=== PATIENT | female | born 1965 | race Caucasian/White ===

== ENCOUNTER 2017-10-24 03:28 | Emergency (ER) | payer MEDICAID, SELFPAY ==
[2017-10-24 03:30] VITALS: BP 124/89; PULSE 90; RESP 16; TEMP 36.8; O2SAT 97; BMI 20.8
--- NOTE | 2017-10-24 03:48 | CT_ITS ---
STUDY: CT ABDOMEN AND PELVIS WITHOUT CONTRAST REASON FOR EXAM: Female, 52 years old. LOW ABD PAIN AND SWELLING. Pt. had back surgery 07/2017 for scoliosis RADIATION DOSAGE (If Supplied By Facility): CTDIvol = ( 6.15 ) mGy, DLP = ( 276.33 ) mGycm TECHNIQUE: Transaxial images were obtained from the dome of the diaphragm to the symphysis pubis without oral contrast, and without intravenous contrast. Sagittal and coronal images were reconstructed. Individualized dose optimization techniques were used for this CT. COMPARISON: None. FINDINGS: The visualized lung bases are unremarkable. The visualized portions of the heart are within normal limits. Normal liver. Normal gallbladder and extrahepatic biliary system. Normal spleen. Normal pancreas. Normal bilateral adrenal glands. Normal right kidney. Normal left kidney. Normal visualized stomach. Normal small intestine. Normal colon. The appendix is visualized and appears normal. Normal abdominal aorta. Normal inferior vena cava. Normal retroperitoneum. Normal urinary bladder. Normal abdominal wall. Posterior fusion hardware is seen in the lower thoracic spine and in the lumbar spine extending to S2 level with fusion of the bilateral sacroiliac joints. There is an old compression fracture of L1. Healing fractures are noted in the right and left superior and inferior pubic rami and in the sacrum. There is fluid collection posterior to the laminectomy site at the L1, L2, L3, L4 measuring approximately measuring approximately 4.2 x 3 x 8.4 cm most likely represent a seroma. CT/Abdomen/Pelvis without Cont IMPRESSION: There is fluid collection posterior to the laminectomy site at the L1, L2, L3, L4 measuring approximately measuring approximately 4.2 x 3 x 8.4 cm most likely represent a seroma. Electronically Signed: Ruby Monson MD at 5:15 EDT Tel , Service support ,
--- NOTE | 2017-10-24 03:51 | ED.DCSUM_ITS ---
- ER Visit Summary Date of Service: 10/24/17 Chief Complaint: [] Abdominal pain History of Present Illness: The patient is a 52 F [] complaining of diffuse mild abdominal pain since July 26, 2017, the date of her most recent back surgery for scoliosis/kyphosis. She reports nausea, denies vomiting. Denies diarrhea or constipation. Feels slight abdominal distention. Feels something just is not right. Patient has an unusual affect. Physical Examination: [] Afebrile, vital signs stable. 52-year-old female no acute distress. Cardiovascular exam is regular rate and rhythm. Lungs are clear to auscultation. Abdomen is soft with mild diffuse tenderness. No guarding or rebound noted. Nondistended. Remainder of exam is unremarkable. Test Results: [] Labs: CBC, BMP, LFTs, lipase all within normal limits. CT flank: No abdominal pathology. Seroma/fluid collection around the spine near the area of recent orthopedic spine surgery. No signs of abscess. Emergency Department Course and Treatment: [] Patient received intravenous fluids, Phenergan for symptom relief. On serial exam patient had mild improvement of symptoms. Patient had several questions about her discomfort of unknown origin. She was encouraged to follow-up with her [employer] TECHNICIAN as she reports increasing pressure in her pelvic organs. No other complaints at this time. She is amenable to discharge at this time and close follow-up. Treatment Plan: [] Follow-up with PCP. Disposition: [] Discharge, stable. Impression: [] Abdominal pain, unknown etiology Seroma This note was generated with [employer] dictation software. It may contain incorrect words, spelling, and punctuation that were not noted in review of the chart prior to signing ED Disposition - Plan for ED Patient: Chief Complaint: Abd Pain Referrals: Amanda Cyr MD [Primary Care Provider] -
[2017-10-24 04:34] LABS: Absolute Lymphocyte Count 1.57 X10^3/ul (0.83-4.51); Absolute Neutrophil Count 3.7 X10^3/uL (2.0-7.7); Basophil# 0.02 X10^3/uL; Basophil% 0.3 % (0-1); Eosinophil# 0.06 X10^3/uL; Hematocrit 34.2 % (37-47); Hemoglobin 10.8 g/dl (12.0-15.0); Lymphocyte # 1.57 X10^3/ul (4.0); Mean Corp Hgb Conc 31.6 g/gl (32-36); Mean Corpuscular Hgb 26.3 pg (27.0-32.0); Mean Corpuscular Volume 83.2 fL (81-99); Mean Platelet Vol. 11.3 fl (6.2-12.0); Monocyte# 0.47 X10^3/uL; Monocyte% 8.1 % (0-10); Neutrophil # 3.67 X10^3/uL (2.7-7.7); Neutrophil % 63.3 % (47-70); POSITIVE COUNT NO; POSITIVE DIFFERENTIAL NO; POSITIVE MORPHOLOGY NO; Platelet Count 278 K/mm3 (150-450); RBC Distribution Width CV 15.3 % (11.6-14.6); RBC Distribution Width SD 46.6 fl (35.1-43.9); Red Blood Count 4.11 M/mm3 (4.2-5.4); White Blood Count 5.8 K/mm3 (4.4-11.0)
[2017-10-24 04:44] LABS: ALB/GLOB Ratio 1.1 RATIO (0.9-2.4); AST(SGOT) 17 U/L (15-37); Alanine Aminotransfer ALT/SGPT 21 U/L (13-56); Albumin, Serum 3.7 g/dL (3.2-5.0); Alkaline Phosphatase 136 U/L (45-117); Anion Gap 6 (5-15); BUN 17 mg/dL (7-18); BUN/Creat Ratio 35.8 RATIO (10-20); Chloride 109 mmol/L (98-107); Creatinine, Serum 0.48 mg/dL (0.55-1.02); EST Glomerular Filtration Rate 146 mL/min (>60); Est Glom Filt Rate - Afr Amer 176 mL/min (>60); Estimated Creatinine Clearance 112.12 ml/min; Globulin 3.4 g/dL (2.2-4.2); Glucose 97 mg/dL (74-106); Lipase 201 U/L (73-393); Protein, Total 7.1 g/dL (6.4-8.2); Sodium Level 141 mmol/L (136-145)
--- NOTE | 2017-10-24 05:28 | ED.DEP ---
ED Disposition - Plan for ED Patient: Disposition: Home or Assisted Living Chief Complaint: Abd Pain Instructions: ED Abdominal Pain Unkn Cause, ED Seroma Post Op Referrals: Amanda Cyr MD [Primary Care Provider] - Additional Instructions: Follow-up with your lock up worker for evaluation of potential uterine prolapse or other cervical pathologies.
[2017-10-24 05:42] VITALS: BP 121/90; PULSE 79; RESP 15; O2SAT 96
== END 2017-10-24 05:48 | disposition home or self-care (01) ==
PROVIDERS: Emergency Provider Emergency Medicine; Family Provider Internal Medicine; PCP Internal Medicine
DX: R10.84 Generalized abdominal pain (principal); M96.842 Postprocedural seroma of a musculoskeletal structure following a musculoskeletal system procedure; Z72.0 Tobacco use; Z79.891 Long term (current) use of opiate analgesic; Z79.899 Other long term (current) drug therapy
CPT/HCPCS: 74176; 80053; 83690; 85025; 99284; A4216

== ENCOUNTER → 2017-11-26 15:00 | Outpatient (CLI) | payer MEDICAID, SELFPAY ==
--- NOTE | 2017-11-26 15:02 | RAD_ITS ---
STUDY: X-RAY - ABDOMEN/PELVIS REASON FOR EXAM: Female, 52 years old. Constipation TECHNIQUE: Single AP view of the abdomen / pelvis. COMPARISON: None. FINDINGS: Normal visualized lung bases. There is an unremarkable bowel gas pattern. There is no demonstrated free abdominal air. The visualized liver, spleen and kidneys are grossly normal in size and morphology. Normal soft tissue structures. Extensive thoracic, lumbar, and sacral fusions. Multiple laminectomies and disc space fusions. Remote deformities of the bilateral superior and inferior pubic rami. RAD/Abdomen Single View IMPRESSION: Normal bowel gas pattern. Electronically Signed: Jaden Sandra MD at 23:39 EDT Tel , Service support ,
== END ==
PROVIDERS: Family Provider Internal Medicine; PCP Internal Medicine; Visit Provider Surgery
DX: K59.09 Other constipation (principal)
CPT/HCPCS: 74018

== ENCOUNTER 2018-03-11 12:30 | Outpatient (RCR) | payer MEDICAID, SELFPAY ==
--- NOTE | 2017-11-23 12:18 | HP.PTEVAL_ITS ---
Patient's Visit Information TANA GOLDBERG is a 52 year old F referred to Physical Therapy by KI PEDERSEN with a diagnosis of Degenerative scoliosis. Date of Evaluation: 11/23/17 Physical Therapist: Ki Fuentes PT, - Visit Plan Frequency: 2x /Week Duration: 4 Weeks Plan: Light intensity core strengthening program, B LE flexibility program, balance program. Nustep for endurance. Modalities prn. S/P thoracolumbar fusion 07/26/17. High psychosocial component with her pain/recovery. - Subjective Subjective: Pt is a 52 y/o female referred for degenerative scoliosis. She had spinal fusion last November 2016 and then a second surgery this past Feburary [address] Armendariz. States that her fusion was redone then was was extended up to the T5 region. She was hospitalized for 6 days. She had a brace and back precautions immediately after her surgery. She has had a difficult post-op recovery as she states that she lost about 10 lbs of weight and having difficulty with bowel movements. She has a Dr. that is montioring these issues. She reports increased LBP but denies radicular symptoms that she had in the past. Patient current condition posture surgery affects QOL and impaires ADL'S/ housewotk taks. SOCAIL: SINGLE. VOCATION: unemployed - Pain Thoracic/lumbar spine Pain Intensity (Out of 10): 9 Pain Intensity Range: 10 - Objective OBSERVATION: ambulates with forward flexed trunk flexed. Incisions well healed , upto ~T4-5 level. GAIT: Ambulates with FWW, forward flexed posturereciprocal pattern. ROM: Lumbar flexion 50%, extension 0%, B LF 50%. Cervical flexion 75% , extension 50%, R rotation 100%, L rotation 75%. NEURO: Dermatomes intact, myotomes intact, unable to elicit DTRs for L3/S1. STRENGTH: B LE gross MMT 4-/ 5 quads/hams ,hip flexion 3+/5 ,ankle 4-/5 - Goals Goal 1:: Pt will report ability to ambulate for >250 feet with LRAD to improve independence with functional ambulation. Goal Time Frame: 4-6 Weeks Goal 2:: Pt will improve CANDIS by 5 points to exhibit true change in function and QOL. Goal Time Frame: 4-6 Weeks Goal 3:: Pt will demonstrate B LE strength of 4/5 to improve tolerance with functional transfers. Goal Time Frame: 4-6 Weeks Goal 4:: Pt will be independent with HEP to sustain gains made in therapy. Goal Time Frame: 4-6 Weeks Goal 5:: Patient be able to perform ADL'S and ligh housework tasks with min/mod limitaions Goal 6:: Pt will demonstrate narrow IASURA with eyes closed for 20 seconds to improve static balance during standing tasks. Goal Time Frame: 4-6 Weeks - Rehabilitation Potential Physical Therapy Diagnosis: Pt is a 52 y/o female referred for degenerative scoliosis. She had a 2nd fusion performed on 07/26/17, pt describes this surgery was an extension to T5. She had a previous fusion performed 12/15/16. She reports post operative complications that are being followed by another doctor. Since this surgery, she demonstrates improved standing posture and no radicular symptoms. She has activity limitations that include decreased ambulation distance, decreased standing tolerance, and decreased independence with ADLs. This limits her participation with community ambulation. She has multiple orthopedic and psychosocial factors that are barriors to care. Pt will benefit from skilled PT to address the mentioned impairments to maximize function. Rehabilitation Potential: Fair - Anticipated Interventions Patient/Client Instruction: Educate patient on: Condition, Plan of Care For the Purpose of:: To decrease pain, To increase ROM, To improve muscle performance and motor function, To improve ability to perform ADL's, To increase tolerance to activity/condition/position, To improve performance and independence with ADL's, To improve ability of physical actions for home/ community/work/leisure, To improve gait and locomotor functions, To improve health of tissue, To decrease soft tissue restriction, To increase flexibility/ ROM, To improve endurance, To improve self management Therapeutic Exercise to Include: Strength training, Endurance training, Balance training, Body mechanics, Postural training, Flexibilty training, Gait and locomotor training, Active ROM, Dynamic Lumbar Stabilization For the Purpose of:: To decrease pain, To increase ROM, To improve muscle performance and motor function, To increase tolerance to activity/condition/ position, To improve performance and independence with ADL's, To improve ability of physical actions for home/community/work/leisure, To improve gait and locomotor functions, To improve health of tissue, To decrease soft tissue restriction, To increase flexibility/ROM, To improve self management TENS: Yes IF ES: Yes Other electric stimulation: Yes Cryotherapy (ice pack, ice massage): Yes Thermo therapy (hot pack): Yes For the Purpose of:: To decrease pain, To increase ROM, To improve muscle performance and motor function, To improve ability to perform ADL's, To increase tolerance to activity/condition/position, To improve ability of physical actions for home/community/work/leisure, To improve gait and locomotor functions, To improve health of tissue, To decrease soft tissue restriction, To increase flexibility/ROM, To improve endurance, To improve balance, To improve safety with gait Thank you for the opportunity to evaluate your patient. For Medicare and Medicare HMO plans, please review the plan of care and approve it. It will need to be FAXED BACK to us at [phone] for Medicare purposes. Please let me know if there are questions or concerns regarding this plan of care. Physician Signature: Date:
--- NOTE | 2018-04-05 11:40 | HP.PT.NRP ---
HP - Discharge Summary (1) - Patient Information TANA GOLDBERG was seen in my office for initial evaluation on 11/23/17. The following Plan of Care was established for this patient: Initial Frequency: 2x /Week Initial Duration: 4 Weeks - Anticipated Interventions Patient/Client Instruction: Educate patient on: Condition, Plan of Care For the Purpose of:: To decrease pain, To increase ROM, To improve muscle performance and motor function, To improve ability to perform ADL's, To increase tolerance to activity/condition/position, To improve performance and independence with ADL's, To improve ability of physical actions for home/community/work/leisure, To improve gait and locomotor functions, To improve health of tissue, To decrease soft tissue restriction, To increase flexibility/ROM, To improve endurance, To improve self management Therapeutic Exercise to Include: Strength training, Endurance training, Balance training, Body mechanics, Postural training, Flexibilty training, Gait and locomotor training, Active ROM, Dynamic Lumbar Stabilization For the Purpose of:: To decrease pain, To increase ROM, To improve muscle performance and motor function, To increase tolerance to activity/condition/position, To improve performance and independence with ADL's, To improve ability of physical actions for home/community/work/leisure, To improve gait and locomotor functions, To improve health of tissue, To decrease soft tissue restriction, To increase flexibility/ROM, To improve self management TENS: Yes IF ES: Yes Other electric stimulation: Yes Cryotherapy (ice pack, ice massage): Yes Thermo therapy (hot pack): Yes For the Purpose of:: To decrease pain, To increase ROM, To improve muscle performance and motor function, To improve ability to perform ADL's, To increase tolerance to activity/condition/position, To improve ability of physical actions for home/community/work/leisure, To improve gait and locomotor functions, To improve health of tissue, To decrease soft tissue restriction, To increase flexibility/ROM, To improve endurance, To improve balance, To improve safety with gait This patient was last seen in our office 03/11/18. Pertinent comments regarding their Physical therapy will appear below: Patient has been in physical for revision lumbar -thoracic fusion with cyndy placemnet. Patient has been inconsisted with attending PT treatment due to personal issues. Conts to use FWW .Patient followed up with MD. Patient called in and cancelled appoints due MD told her she had failed hardware.Thus patient is d/c. At this point I will be discontinuing this patient from physical therapy. I would be happy to see this patient again in the future if found appropriate by the physician. Thank you! Suman Fuentes, PT,
== END 2018-03-11 19:00 | disposition home or self-care (01) ==
LOC: PT 12:30
PROVIDERS: Family Provider Internal Medicine; PCP Internal Medicine
DX: M41.9 Scoliosis, unspecified (principal)
CPT/HCPCS: 97110; 97163; 97530

== ENCOUNTER 2018-03-25 20:35 | Emergency (ER) | payer MEDICAID, SELFPAY ==
[2018-03-25 20:36] VITALS: BP 137/85; PULSE 71; RESP 20; TEMP 37; O2SAT 99; BMI 20.5
--- NOTE | 2018-03-25 21:17 | RAD_ITS ---
STUDY: X-RAY - LUMBAR SPINE REASON FOR EXAM: Female, 52 years old. Back pain. Back surgery for scoliosis earlier this year. TECHNIQUE: 2 view(s) of the lumbar spine were obtained. COMPARISON: Lumbar spine, April 01, 2017. FINDINGS: Again seen is evidence of posterior fusion of L2-S1 and posterior fusion of the thoracic spine. The metallic rods and pedicle screws are intact and unchanged in appearance from the prior study. Stable disc spacers at L3-4 L4-5 and L5-S1. There is no substantial scoliosis. There is a normal alignment of the vertebrae. There is generalized osteopenia which limits evaluation. There is mild loss of disc height. The soft tissue structures are unremarkable. RAD/Lumbar Spine 2 or 3 Views IMPRESSION: Stable surgical hardware. Further evaluation of the lumbar spine is limited due to marked osteopenia Electronically Signed: Archie Cr DO at 21:38 EDT Tel [phone], Service support ,
--- NOTE | 2018-03-25 21:17 | RAD_ITS ---
STUDY: X-RAY - PELVIS AND BILATERAL HIPS REASON FOR EXAM: Female, 52 years old. History of back surgery for scoliosis. Pain. TECHNIQUE: Radiological exam, hip, bilateral, with pelvis when performed; minimum of 5 views COMPARISON: Pelvis and left hip, February 07, 2017. FINDINGS: There is a non-specific bowel gas pattern. Normal visualized soft tissue structures. Stable surgical hardware of the lumbar spine and pelvis. Normal bilateral iliac wings, sacroiliac joints and visualized sacrum. Normal bilateral superior and inferior pubic rami. Normal pubic symphysis. Normal bilateral ischial tuberosities. Normal visualized right femoral head. Normal right acetabulum. Normal right hip joint. Normal visualized left femoral head. Normal left acetabulum. Normal left hip joint. RAD/Hips B/L min 2 views w/ Pelvis IMPRESSION: Stable findings. There is no acute fracture or dislocation. Electronically Signed: Archie Cr DO at 21:39 EDT Tel [phone], Service support ,
--- NOTE | 2018-03-25 22:29 | ED.VISSUMM ---
- ER Visit Summary Date of Service: 03/25/18 Chief Complaint: Back pain History of Present Illness: The patient is a 52 F with a history of chronic back pain. Patient has had multiple surgeries and has rods in her back. Patient states that she was told a stress fracture was found on x-rays of her lower back on March 18. She states her hips are now more painful and she wanted to have these checked. She is currently taking tramadol, Lyrica, along with something for muscle spasm. There is been no new injury to her back. Physical Examination: Vital signs are unremarkable. Patient sitting upright in bed no acute distress. Heart is regular rate and rhythm. Lung sounds are clear. Abdomen is soft and nontender. No palpable masses. Back examination reveals midline surgical scar over the thoracic and lumbar spine. There is very mild to minimal tenderness on exam. Lower extreme examination was no focal tenderness with palpation of the anterior or lateral hips. She has good range of motion. Strong distal pulses are noted. Test Results: LS spine x-rays were obtained that reveals stable surgical hardware. There is marketed osteopenia. Pelvis x-ray along with bilateral hips reveal stable findings. No acute fracture. Emergency Department Course and Treatment: Test results are discussed with the patient. She states she would like to get an opinion of another spine surgeon as she would like to have her hardware removed or switched. She will be referred to Dr. Adrian's office as there is a spine surgeon that comes up from [facility] to see patients. She will continue her current medication regimen. Treatment Plan: [] Disposition: Discharge Impression: Chronic back pain This note was generated with [employer] dictation software. It may contain incorrect words, spelling, and punctuation that were not noted in review of the chart prior to signing ED Disposition - Plan for ED Patient: Chief Complaint: Back Referrals: Amanda Cyr MD [Primary Care Provider] -
--- NOTE | 2018-03-25 22:31 | ED.DEP ---
ED Disposition - Plan for ED Patient: Disposition: Home or Assisted Living Chief Complaint: Back Instructions: ED Neck Back Pain General Referrals: Amanda Cyr MD [Primary Care Provider] - [place] Adrian DO [STAFF PHYSICIAN] - As Needed Additional Instructions: You can follow-up with a spine surgeon who sees patient's at Dr Adrian's office.
[2018-03-25 23:06] VITALS: BP 110/66; PULSE 81; RESP 16; O2SAT 95
== END 2018-03-25 23:07 | disposition home or self-care (01) ==
PROVIDERS: Emergency Provider Emergency Medicine; Family Provider Internal Medicine; PCP Internal Medicine
DX: M54.5 Low back pain (principal); G89.29 Other chronic pain; M79.7 Fibromyalgia; Z79.891 Long term (current) use of opiate analgesic; Z79.899 Other long term (current) drug therapy; Z72.0 Tobacco use
CPT/HCPCS: 72100; 73521; 99282

== ENCOUNTER 2018-05-02 18:30 | Emergency (ER) | payer MEDICAID, SELFPAY ==
[2018-05-02 18:32] VITALS: BP 124/90; PULSE 105; RESP 16; TEMP 36.6; O2SAT 97; BMI 24.2
--- NOTE | 2018-05-02 18:39 | ED.RN ---
PT CONTINUES TO INSIST THAT SHE DOES NOT WANT TO BE SEEN. SHE WAS OFFERED A SCREEN EXAM BUT CONTINUES TO DECLINE. AWARE.
--- NOTE | 2018-05-02 18:42 | ED.RN ---
SPOKE WITH PT AGAIN, PT INSISTS THAT SHE DOES NOT WANT TO BE SEEN. PT REFUSING SCREEN EXAM BY .
== END 2018-05-02 18:43 | disposition left against medical advice (07) ==
LOC: ED 18:47
PROVIDERS: Emergency Provider Emergency Medicine; Family Provider Internal Medicine; PCP Internal Medicine
DX: R56.9 Unspecified convulsions (principal)
CPT/HCPCS: 99282

== ENCOUNTER 2018-10-29 17:39 | Emergency (ER) | payer MEDICAID, SELFPAY ==
[2018-10-29 17:41] VITALS: BP 134/76; PULSE 107; RESP 18; TEMP 37.3; O2SAT 96; BMI 23.6
--- NOTE | 2018-10-29 17:57 | RAD_ITS ---
STUDY: X-RAY - LEFT SHOULDER REASON FOR EXAM: Female, 53 years old. Fell in the shower this morning, left shoulder pain TECHNIQUE: 2 view(s) of the shoulder. COMPARISON: None. FINDINGS: Normal glenohumeral articulation. Normal acromioclavicular joint. Normal acromion. Normal humeral head and visualized proximal humerus. The soft tissue structures are unremarkable. Thoracic fusion hardware noted. RAD/Shoulder min 2 Views IMPRESSION: No fracture or malalignment. Electronically Signed: Iain Herrera MD at 18:33 EDT , Service support ,
--- NOTE | 2018-10-29 17:57 | RAD_ITS ---
STUDY: X-RAY - UNILATERAL RIBS ( LEFT ) WITH CHEST REASON FOR EXAM: Female, 53 years old. The shower this morning, chest pain TECHNIQUE - RIBS: 4 view(s) of the ribs. TECHNIQUE - CHEST: PA COMPARISON: None. FINDINGS - RIBS: Diffuse osteopenia limits exam. No obvious displaced acute rib fractures seen. Unhealed but subacute appearing fracture of the posterior left seventh rib demonstrates callus. FINDINGS - CHEST: The lungs are clear and expanded. There is no demonstrated pleural abnormality. Normal size heart. Normal mediastinum and charla. Normal visualized pulmonary arteries. Normal visualized aortic arch and descending thoracic aorta. Extensive fusion hardware of the thoracolumbar spine. There is no demonstrated abnormality of the visualized soft tissue structures of the upper abdomen. RAD/Ribs Uni Min 3V w/PA Chest IMPRESSION: RIBS: No displaced acute rib fracture. Partially healed (subacute or chronic) posterior left seventh rib fracture. CHEST: Nonacute x-ray examination of the chest. Electronically Signed: Iain Herrera MD at 18:35 EDT , Service support ,
--- NOTE | 2018-10-29 18:03 | ED.VISSUMM ---
- ER Visit Summary Date of Service: 10/29/18 Chief Complaint: Fall History of Present Illness: The patient is a 53 F presenting after fall. Patient slipped in her bathtub and fell onto her left side. She did not hit her head or lose consciousness. She states she tried to catch herself so she would not hit her back because she has had multiple back problems in the past. She hit her left shoulder. She denies other injuries. Physical Examination: Vitals are stable. Patient is afebrile. Alert no acute distress. HEENT exam is unremarkable. Neck is nontender Lungs are clear and equal bilaterally. Tenderness along left clavicle. Left anterior rib tenderness, no crepitus Heart is regular rate and rhythm. Abdomen is soft nontender nondistended. Extremities mild left shoulder tenderness with active full range of motion. Skin is warm and dry. No focal neurologic deficit. Remainder of exam is unremarkable. Emergency Department Course and Treatment: Left Clavicle x-ray shows no acute process. Left shoulder x-ray shows no acute process. Left rib series shows RIBS: No displaced acute rib fracture. Partially healed (subacute or chronic) posterior left seventh rib fracture. CHEST: Nonacute x-ray examination of the chest. Patient drove herself to the ED. She is given a [employer] home pack. Advised to follow-up with primary care physician. Advised return to ED for worsening complaints. Disposition: Discharge home Impression: Left chest wall contusion status post mechanical fall This note was generated with [employer] dictation software. It may contain incorrect words, spelling, and punctuation that were not noted in review of the chart prior to signing ED Disposition - Plan for ED Patient: Instructions: ED Contusion Rib Referrals: Amanda Cyr MD [Primary Care Provider] -
--- NOTE | 2018-10-29 18:10 | RAD_ITS ---
STUDY: X-RAY - LEFT CLAVICLE REASON FOR EXAM: Female, 53 years old. Following the shower this morning, clavicle pain TECHNIQUE: 2 view(s) of the clavicle. COMPARISON: None. FINDINGS: Normal clavicle. Normal acromioclavicular articulation. Normal visualized sternoclavicular articulation. Fusion hardware of the thoracic spine noted. RAD/Clavicle IMPRESSION: No clavicle fracture seen. Electronically Signed: Iain Herrera MD at 18:32 EDT , Service support ,
--- NOTE | 2018-10-29 21:43 | ED.DEP ---
ED Disposition - Plan for ED Patient: Instructions: ED Contusion Rib Referrals: Amanda Cyr MD [Primary Care Provider] -
[2018-10-29 21:55] VITALS: RESP 18
[2018-10-29] MEDS: HYDROcodone Bitartrate/Apap 5/325 Tablet PO (21:55)
== END 2018-10-29 21:56 | disposition home or self-care (01) ==
PROVIDERS: Emergency Provider Emergency Medicine; Family Provider Internal Medicine; PCP Internal Medicine
DX: S20.212A Contusion of left front wall of thorax, initial encounter (principal); Z72.0 Tobacco use; W18.2XXA Fall in (into) shower or empty bathtub, initial encounter; Y93.E1 Activity, personal bathing and showering; Y92.002 Bathroom of unspecified non-institutional (private) residence as the place of occurrence of the external cause; Y99.8 Other external cause status
CPT/HCPCS: 71101; 73000; 73030; 99282

== ENCOUNTER 2018-12-11 12:08 | Emergency (ER) | payer MEDICAID, SELFPAY ==
[2018-12-11 12:09] VITALS: BP 123/80; PULSE 89; RESP 18; TEMP 36.6; O2SAT 98; BMI 24.4
--- NOTE | 2018-12-11 12:24 | ED.VIS.GEN ---
History of Present Illness Informant: Patient Onset: Yesterday Context: Sudden Onset Timing: Continuous Quality: aching Location: back Current Severity: Severe Maximum Severity: Severe Worsened by: movement Relieved by: nothing Associated Symptoms: denies Narrative: 53-year-old woman with a history of chronic back pain who is on tramadol presents because she thinks that she may have lost her bottle of tramadol. She gets this prescription from Dr. Cyr. She last took a dose at 6 PM yesterday. She fill the new prescription for 1 month supply 4 days ago. She does not remember what happened to the bottle and could not find it today. She states that she has not left her home since she took her dose yesterday. She lives alone and no one has been able to come help her look for the bottle medications. No one is been in her out of the house since she last saw the bottle. She is here because she is out of her tramadol and is having back pain but has not had any new injury to her back or trauma and her pain is consistent with the chronic back pain that she deals with on a daily basis. Prior similar symptoms: Yes Recent Illness/Hospitalization: No <Angel Oneal - Last Filed: 12/11/18 12:24> <Ovidio Patricia - Last Filed: 12/11/18 14:13> Chief Complaint: Back Past Medical History Prior records reviewed: Yes Past Medical History: - - Chronic back pain Surgical History: - - Multiple back surgeries Smoking Status: Current every day smoker <Angel Oneal - Last Filed: 12/11/18 12:24> <Ovidio Patricia - Last Filed: 12/11/18 14:13> - Allergies and Home Meds Allergies/Adverse Reactions: Allergies buspirone [From BuSpar] Allergy (Verified 12/11/18 12:12) Hives escitalopram [From Lexapro] Adverse Reaction (Verified 12/11/18 12:12) Rash gabapentin Adverse Reaction (Verified 12/11/18 12:12) Nausea/Vom/Diarrhea ANTIDEPRESSANT-UNKNOWN NAME Allergy (Uncoded 12/11/18 12:12) Other PT UNABLE TO TOLERATE Primary Care Physician: Amanda Cyr MD [Primary Care Provider] - Review of Systems All systems negative except as indicated Musculoskeletal: Reports: Back pain <Angel Oneal - Last Filed: 12/11/18 12:24> Physical Exam Vital Signs/Narrative: Vital Signs Temp Pulse Resp BP Pulse Ox 12/11/18 12:09 97.8 F 89 18 123/80 H 98 Inital Vital Signs reviewed: No General: Well nourished, Well developed Head: Normocephalic, Atraumatic Eyes: Perrl, EOMI ENT: Moist mucous membranes Neck: Supple, Nontender Cardiovascular: Regular rate, Regular rhythm Respiratory: No distress, CTA bilaterally, Chest nontender Abdomen: Soft, Nontender, Nondistended, Normal bowel sounds, No masses Back: Normal Inspection, - - Patient has some mild paraspinal pain on palpation thoracic and lumbar areas that is consistent with her chronic back pain. She moves all 4 extremities normally. She was able to ambulate with her walker which she uses at baseline. Strength testing of all 4 extremities is 5 out of 5, pulses and sensation of all 4 extremities normal. Negative for: Spinal tenderness Extremities: Nontender, No edema Skin: Normal color, No rash Neurological: Alert, Oriented x3, Normal Strength, Normal Sensation, Normal Gait <Angel Oneal - Last Filed: 12/11/18 12:24> Vital Signs/Narrative: Vital Signs Temp Pulse Resp BP Pulse Ox 12/11/18 13:03 16 123/80 H 12/11/18 12:09 97.8 F 89 18 123/80 H 98 <Ovidio Patricia - Last Filed: 12/11/18 14:13> Diagnostic/Tx/Re-eval - Medical Decision Making We performed a OARRS port on the patient. She just filled 1 month supply of tramadol 4 days ago by her doctor. Discussed with her at this time due to [facility] rules and regulations we would be unable to prescribe her more Ultram. She will have to follow-up with her doctor that prescribed medication for this. She does not have any acute injury that would require imaging or work-up in the emergency department. Discharged home and advised to call her doctor's office tomorrow, which is Wednesday. <Angel Oneal - Last Filed: 12/11/18 12:24> - Medical Decision Making this is Dr. Patricia dictating agree with history and physical exam as above seen with the PA Indicates she lost her tramadol her physical exam is unremarkable head neck chest abdomen baseline nothing acute explain the above the patient we cannot refill her tramadol if she has lost that her needs refill prescription of her primary care physicians due to [facility] and other regulator rules <Ovidio Patricia - Last Filed: 12/11/18 14:13> ED Disposition <Angel Oneal - Last Filed: 12/11/18 12:24> <Ovidio Patricia - Last Filed: 12/11/18 14:13> - Plan for ED Patient: Disposition: Home or Assisted Living Diagnosis: Chronic back pain Instructions: BACK PAIN (Acute or Chronic) Referrals: Amanda Cyr MD [Primary Care Provider] -
[2018-12-11 13:03] VITALS: BP 123/80; RESP 16
== END 2018-12-11 13:04 | disposition home or self-care (01) ==
LOC: ED 13:00
PROVIDERS: Emergency Provider Physician Assistant Medical; Family Provider Internal Medicine; PCP Internal Medicine
DX: M54.5 Low back pain (principal); M54.6 Pain in thoracic spine; G89.29 Other chronic pain; F17.200 Nicotine dependence, unspecified, uncomplicated
CPT/HCPCS: 99282

== ENCOUNTER 2018-12-12 18:23 | Emergency (ER) | payer MEDICAID, SELFPAY ==
[2018-12-11 12:09] VITALS: BMI 24.4
[2018-12-12 18:23] VITALS: BP 105/74; PULSE 72; RESP 16; TEMP 36.6; O2SAT 98; BMI 21.7
[2018-12-12 18:40] VITALS: BP 120/83; PULSE 108; RESP 13; O2SAT 98
--- NOTE | 2018-12-12 19:08 | ED.DCSUM_ITS ---
History of Present Illness Chief Complaint: Back Informant: Patient Onset: - - Chronic Current Severity: Mild Maximum Severity: Moderate Narrative: Patient is a history of chronic back pain. She is written for tramadol and [place] on a regular basis from her primary care physician, Dr. Cyr. Patient states she last took her tramadol yesterday. Today she cannot find her pill bottle. She thinks she may have thrown it out. She states she called the office today but they would not write her more medication. She is here asking for a refill on her tramadol. There is been no new injury in the last several days. Past Medical History - Allergies and Home Meds Allergies/Adverse Reactions: Allergies buspirone [From BuSpar] Allergy (Verified 12/12/18 18:25) Hives escitalopram [From Lexapro] Adverse Reaction (Verified 12/12/18 18:25) Rash gabapentin Adverse Reaction (Verified 12/12/18 18:25) Nausea/Vom/Diarrhea ANTIDEPRESSANT-UNKNOWN NAME Allergy (Uncoded 12/12/18 18:25) Other PT UNABLE TO TOLERATE Primary Care Physician: Amanda Cyr MD [Primary Care Provider] - Prior records reviewed: Yes Past Medical History: - Surgical History: - - Multiple back surgeries Smoking Status: Former smoker Review of Systems General: Denies: Chills, Fever Cardiovascular: Denies: Chest pain Respiratory: Denies: Dyspnea, Cough Gastrointestinal: Denies: Abdominal pain, Nausea, Vomiting Musculoskeletal: Reports: Back pain Neurological: Denies: Headache Physical Exam Vital Signs/Narrative: Vital Signs Temp Pulse Resp BP Pulse Ox 12/12/18 18:40 108 H 13 120/83 H 98 12/12/18 18:23 97.8 F 72 16 105/74 98 Inital Vital Signs reviewed: Yes General: Well nourished ENT: Moist mucous membranes Cardiovascular: Regular rate, Regular rhythm Respiratory: No distress, CTA bilaterally Abdomen: Soft, Nontender, Normal bowel sounds Back: - - Mild tenderness in the lower lumbar region. Extremities: Nontender, - - 1+ bilateral patellar reflexes. Strong distal pulses. Neurological: Alert, Oriented x3 Diagnostic/Tx/Re-eval - Medical Decision Making I did review oars report. Patient has been getting regular prescriptions of tramadol and [place] from Dr. Cyr. The last tramadol prescription was written on December 07 for an 11-day course. I advised the patient I will give her a dose of tramadol here but I would not re-fill her prescription. She reportedly had called the office today but was told that her doctor would not prescribe her medication for her either. I spoke with Dr. Wilson, on-call for Dr. Cyr and let them know the patient was in the emergency room attempting to get a prescription. ED Disposition - Plan for ED Patient: Diagnosis: Chronic back pain Instructions: BACK AND NECK PAIN, General Referrals: Amanda Cyr MD [Primary Care Provider] - As soon as possible
[2018-12-12] MEDS: traMADol 50 MG Tablet 100 MG PO (19:24)
[2018-12-12 19:27] VITALS: BP 102/60; PULSE 80; O2SAT 98
== END 2018-12-12 19:30 | disposition home or self-care (01) ==
LOC: ED 19:04
PROVIDERS: Emergency Provider Emergency Medicine; Family Provider Internal Medicine; PCP Internal Medicine
DX: M54.5 Low back pain (principal); G89.29 Other chronic pain; Z79.891 Long term (current) use of opiate analgesic; Z87.891 Personal history of nicotine dependence
CPT/HCPCS: 99282

== ENCOUNTER 2020-06-22 11:32 | Emergency (ER) | payer MEDICAID, SELFPAY ==
[2020-01-16 12:57] VITALS: BMI 23.4
[2020-06-22 11:32] VITALS: BP 135/80; PULSE 94; RESP 17; TEMP 36.6; O2SAT 96; BMI 25.6
--- NOTE | 2020-06-22 11:37 | EKG12_ITS ---
Test Reason : CP Blood Pressure : / mmHG Vent. Rate : 093 BPM Atrial Rate : 093 BPM P-R Int : 136 ms QRS Dur : 090 ms QT Int : 356 ms P-R-T Axes : 058 043 042 degrees QTc Int : 442 ms Normal sinus rhythm Low voltage QRS (Limb Leads) Borderline ECG Confirmed by SAMUEL RAMOS, ERIC ([id number]), online editor MARIALUISA YOUNG ([id number]) on 06/25/2020 10:28:26 AM Referred By: ЕКАТЕРИНА Confirmed By:ERIC BAKER MD
[2020-06-22 11:46] LABS: Absolute Lymphocyte Count 0.75 X10^3/uL (0.83-4.51); Absolute Neutrophil Count 5.1 X10^3/uL (2.0-7.7); Basophil# 0.02 X10^3/uL; Basophil% 0.3 % (0-1); Eosinophil# 0.01 X10^3/uL; Eosinophils% 0.2 % (0-5); Hematocrit 46.7 % (37-47); Hemoglobin 15.6 g/dL (12.0-15.0); Lymphocyte # 0.75 X10^3/ul (4.0); Lymphocyte % 11.8 % (19-41); Mean Corp Hgb Conc 33.4 g/dL (32-36); Mean Corpuscular Hgb 30.6 pg (27.0-32.0); Mean Corpuscular Volume 91.6 fL (81-99); Mean Platelet Vol. 11.9 fl (6.2-12.0); Monocyte# 0.44 X10^3/uL; Monocyte% 6.9 % (0-10); NRBC Flagged by Analyzer 0 % (0-5); Neutrophil # 5.12 X10^3/uL (2.7-7.7); Neutrophil % 80.5 % (47-70); Platelet Count 238 K/mm3 (150-450); RBC Distribution Width CV 14.8 % (11.6-14.6); RBC Distribution Width SD 49.2 fl (35.1-43.9); White Blood Count 6.4 K/mm3 (4.4-11.0)
--- NOTE | 2020-06-22 11:53 | RAD_ITS ---
STUDY: X-RAY CHEST REASON FOR EXAM: Female, 54 years old. CHEST , ABD, BACK PAIN X 2 DAYS TECHNIQUE: Single AP portable view of the chest. COMPARISON: 10/29/2018 FINDINGS: Moderate lung volumes. Question minimal scarring or subsegmental atelectasis of the lung bases. No infiltrates. No effusions. Heart size normal. Stable appearance of extensive bilateral CABEZAS rods along the length of the spine. RAD/Chest 1 View (Portable) IMPRESSION: No significant acute chest disease. Electronically Signed: Cyrus Tsai MD at 12:15 EST , Service support ,
--- NOTE | 2020-06-22 11:57 | ED.DCSUM_ITS ---
- ER Visit Summary Date of Service: 06/22/20 Chief Complaint: Chest, abdominal and back pain History of Present Illness: The patient is a [address] of depression anxiety, chronic back pain with prior extensive back surgery in February the [facility]. And PTSD. Patient states that recently she has had some medications taken which were Lyrica, tramadol and Klonopin. And since that time she feels like she may be going through withdrawal. She has had crampy chest, abdominal and back pain. She denies shortness of breath. She has had nausea and diarrhea. No fever. No cough. No hemoptysis. She is never had a DVT or PE. No leg pain or swelling. Physical Examination: Middle-aged female vital signs are stable afebrile. Pulse ox 96% on room air no signs of hypoxia. HEENT exam unremarkable. Neck nontender. Lungs auscultation bilaterally. Heart regular rhythm rate about 90 no murmur. Chest were nontender. Abdomen soft nontender. Normal bowel sounds no peritoneal signs. No signs of hernia or obstruction. Patient moving all 4 extremities. Neurovascular intact. Back is nontender. She is hypophonic. She has a well-healed very extensive midline back surgical scar. Neurologically she is awake and alert. With no focal motor deficits. Test Results: CBC normal white count of 6 hemoglobin 15. Electrolytes unremarkable normal creatinine gap. Troponin normal. EKG normal sinus rhythm rate of 93 no acute signs of PA or ischemia. Chest x-ray portable 1 view interpreted by myself shows no acute abnormality. Normal cardiac silhouette mediastinum. Extensive thoracic spine hardware. Also read by the radiologist and agrees no acute abnormality. Repeat exam patient is doing well at 12:52 PM. Improved after the Ativan. Clinically doubt that this is cardiac etiology her abdomen remains benign. This may have been symptomatology secondary to withdrawal. Emergency Department Course and Treatment: Patient with chest, abdominal and back pain. Benign exam. This may be withdrawal. She we will worked up from a cardiac etiology. She will be given a milligram of Ativan p.o. Treatment Plan: Follow-up with primary care physician. Return if feeling worse. Disposition: Discharge Impression: Acute chest, abdominal and back pain Acute withdrawal This note was generated with rankdesk dictation software. It may contain incorrect words, spelling, and punctuation that were not noted in review of the chart prior to signing ED Disposition - Plan for ED Patient: Referrals: Amanda Cyr MD [Primary Care Provider] -
[2020-06-22 12:03] LABS: Anion Gap 6 (5-15); BUN 15 mg/dL (7-18); BUN/Creat Ratio 22.4 RATIO (10-20); Calcium,Total 10.1 mg/dL (8.5-10.1); Chloride 101 mmol/L (98-107); Creatinine, Serum 0.67 mg/dL (0.55-1.02); EST Glomerular Filtration Rate 97 mL/min (>60); Est Glom Filt Rate - Afr Amer 117 mL/min (>60); Estimated Creatinine Clearance 68.15 ml/min; Glucose 112 mg/dL (74-106); Potassium 3.5 mmol/L (3.5-5.1); Sodium Level 135 mmol/L (136-145)
[2020-06-22] MEDS: Aspirin 81 MG TAB.CHEW 324 MG PO (12:27)
--- NOTE | 2020-06-22 12:55 | ED.DEP ---
ED Disposition - Plan for ED Patient: Disposition: Home or Assisted Living Instructions: ED Chest Pain, Uncertain Cause Referrals: Amanda Cyr MD [Primary Care Provider] - 3-5 Days if not improving Additional Instructions: Follow-up with your primary care physician. Your labs, EKG and chest x-ray today were all unremarkable. Your discomfort may be caused from withdrawal symptoms. Return if feeling worse.
[2020-06-22] MEDS: LORazepam 1 MG Tablet PO (13:12)
[2020-06-22 13:15] VITALS: BP 128/71; PULSE 69; RESP 16; O2SAT 98
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
== END 2020-06-22 13:15 | disposition home or self-care (01) ==
PROVIDERS: Emergency Provider Emergency Medicine; PCP Internal Medicine
DX: R07.9 Chest pain, unspecified (principal); R10.9 Unspecified abdominal pain; M54.9 Dorsalgia, unspecified; G89.29 Other chronic pain; F11.93 Opioid use, unspecified with withdrawal; F13.939 Sedative, hypnotic or anxiolytic use, unspecified with withdrawal, unspecified; Z72.0 Tobacco use
CPT/HCPCS: 71045; 80048; 84484; 85025; 93005; 99285; A4216

== ENCOUNTER 2020-06-23 04:06 | Emergency (ER) | payer MEDICAID, SELFPAY ==
[2020-06-22 11:32] VITALS: BMI 25.6
[2020-06-23 04:07] VITALS: BP 103/91; PULSE 95; RESP 16; TEMP 37.2; O2SAT 95; BMI 23.0
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
[2020-06-23] MEDS: DiphenhydrAMINE 25 MG Capsule 50 MG PO (04:44)
[2020-06-23 04:45] VITALS: RESP 16
== END 2020-06-23 04:59 | disposition home or self-care (01) ==
PROVIDERS: Emergency Provider Emergency Medicine; PCP Internal Medicine
DX: G89.29 Other chronic pain (principal); F17.200 Nicotine dependence, unspecified, uncomplicated
CPT/HCPCS: 99284

== ENCOUNTER 2020-06-27 01:36 | Emergency (ER) | payer MEDICAID, SELFPAY ==
[2020-06-27 01:37] VITALS: BP 126/90; PULSE 84; RESP 16; TEMP 36; O2SAT 98; BMI 26.4
--- NOTE | 2020-06-27 01:45 | RAD_ITS ---
STUDY: X-RAY CHEST REASON FOR EXAM: Female, 54 years old. Shortness of breath. Patient ran out of anxiety medication. TECHNIQUE: AP portable chest. COMPARISON: June 22, 2020. Rib series October 29, 2018. FINDINGS: The lungs are clear and expanded. There is no demonstrated pleural abnormality. Minimal linear subsegmental atelectasis left lung base. Normal size heart. Normal mediastinum and charla. Normal visualized pulmonary arteries. Normal visualized aortic arch and descending thoracic aorta. Extensive thoracic lumbar fusion with bilateral rods and pedicle screws which appears stable. Normal visualized ribs, clavicles, and shoulders. There is no demonstrated abnormality of the visualized soft tissue structures of the upper abdomen. RAD/Chest 1 View (Portable) IMPRESSION: No acute cardiopulmonary disease. Electronically Signed: Shantanu Jorge MD at 2:30 EST , Service support ,
--- NOTE | 2020-06-27 01:46 | EKG12_ITS ---
Test Reason : SOB Blood Pressure : / mmHG Vent. Rate : 081 BPM Atrial Rate : 081 BPM P-R Int : 108 ms QRS Dur : 082 ms QT Int : 376 ms P-R-T Axes : 034 023 016 degrees QTc Int : 436 ms Sinus rhythm with short [place] Otherwise normal ECG Confirmed by CJ RAMOS, ESTUARDO ([id number]), material expeditor KAVYA BO ([id number]) on 07/01/2020 11:12:51 AM Referred By: RAN Confirmed By:BETZAIDA CORONA MD
[2020-06-27 01:53] LABS: Absolute Lymphocyte Count 1.58 X10^3/uL (0.83-4.51); Absolute Neutrophil Count 4.7 X10^3/uL (2.0-7.7); Basophil# 0.04 X10^3/uL; Basophil% 0.6 % (0-1); Eosinophil# 0.05 X10^3/uL; Eosinophils% 0.7 % (0-5); Hemoglobin 14.7 g/dL (12.0-15.0); Lymphocyte # 1.58 X10^3/ul (4.0); Lymphocyte % 22.5 % (19-41); Mean Corp Hgb Conc 34.2 g/dL (32-36); Mean Corpuscular Hgb 30.8 pg (27.0-32.0); Mean Corpuscular Volume 90.1 fL (81-99); Mean Platelet Vol. 11.7 fl (6.2-12.0); Monocyte# 0.62 X10^3/uL; Monocyte% 8.8 % (0-10); NRBC Flagged by Analyzer 0 % (0-5); Neutrophil # 4.72 X10^3/uL (2.7-7.7); Neutrophil % 67.1 % (47-70); Platelet Count 244 K/mm3 (150-450); RBC Distribution Width CV 14.3 % (11.6-14.6); RBC Distribution Width SD 47.5 fl (35.1-43.9); Red Blood Count 4.77 M/mm3 (4.2-5.4)
[2020-06-27] MEDS: clonazePAM 0.5 MG Tablet PO (02:06)
[2020-06-27] MEDS: Pregabalin 75 MG Capsule 300 MG PO (02:06)
--- NOTE | 2020-06-27 02:16 | ED.VIS.GEN ---
History of Present Illness Chief Complaint: Shortness of Breath Narrative: Patient ran out of her clonazepam, Ultram, Lyrica. She has had nausea, epigastric pain and some subjective dyspnea as ever since. She has not had fever or chills. She denies chest pain. She denies pleuritic component. She has no lower extremity edema. She has no back pain or tearing sensation. She has no lower abdominal pain she denies dysuria or hematuria. Past medical history: Anxiety depression and chronic pain Medications: As in HPI Social history: Smoker denies any other drugs Review of systems: All systems negative except as indicated General: Denies: Fever Eyes: Denies: Visual changes - bilaterally ENT: Denies: Rhinorrhea, Sore throat Cardiovascular: Denies: Chest pain Respiratory: Admits to dyspnea Gastrointestinal: Some epigastric pain with nausea but no vomiting. Some loose stools but no diarrhea. Genitourinary: Denies: Dysuria Musculoskeletal: She does have some generalized myalgias. Skin: Denies: Rash Neurological: Denies: Headache, no focal weakness Psych: Reports: Feels quite anxious Hematologic: Denies: Easy bruising, Easy bleeding Physical exam General: Patient appears anxious but does not appear in any distress Head: Normocephalic, Atraumatic Eyes: Conjunctiva not pale ENT: Moist mucous membranes Neck: Supple, Nontender, No lymphadenopathy Cardiovascular: Regular rate, Regular rhythm Respiratory: No distress, CTA bilaterally Abdomen: Soft, I cannot reproduce any epigastric pain. She has no right upper quadrant pain. There is no guarding or rebound. Back: Nontender, Normal Inspection. Negative for: CVA tenderness Extremities: Nontender, No edema Skin: Normal color, No rash Neurological: Alert, Normal Strength, Normal Sensation Psychological: Anxious appearing. Past Medical History - Allergies and Home Meds Allergies/Adverse Reactions: Allergies buspirone [From BuSpar] Allergy (Verified 06/27/20 01:42) Hives escitalopram [From Lexapro] Adverse Reaction (Verified 06/27/20 01:42) Rash gabapentin Adverse Reaction (Verified 06/27/20 01:42) Nausea/Vom/Diarrhea ANTIDEPRESSANT-UNKNOWN NAME Allergy (Uncoded 06/27/20 01:42) Other PT UNABLE TO TOLERATE Primary Care Physician: Amanda Cyr MD [Primary Care Provider] - Surgical History: - - Multiple back surgeries Smoking Status: Current every day smoker Physical Exam Vital Signs/Narrative: Vital Signs Temp Pulse Resp BP Pulse Ox 06/27/20 01:37 96.8 F L 84 16 126/90 H 98 Diagnostic/Tx/Re-eval Chest X-Ray - ED: 1 View, Read by ED Physician, Read by Radiologist, Normal, Heart, Lungs - Rhythm Strip Rhythm Strip: Sinus Rhythm Rate: 81 Ectopy: None - EKG Initial EKG Interpretation: - - Normal sinus rhythm with a rate of 81. RI interval is 108. Normal QTC. No ischemic changes seen. Interpreted by emergency doctor - Medical Decision Making Patient has a normal emergency department work-up. She was given Lyrica and clonazepam in the ED and she improved. She will be given a small amount of clonazepam for home so she does not withdraw. Otherwise she can follow-up with her PCP for refills. ED Disposition - Plan for ED Patient: Disposition: Home or Assisted Living Diagnosis: Acute drug withdrawal syndrome Instructions: ED Opioid Withdrawal Prescriptions: Clonazepam [Klonopin] 0.5 mg PO BID PRN 5 Days #5 tab PRN Reason: Anxiety Prescription Printed Pregabalin [Lyrica] 300 mg PO BID #10 cap Prescription Printed Referrals: Amanda Cyr MD [Primary Care Provider] - 2 Days
[2020-06-27 02:43] LABS: ALB/GLOB Ratio 1.1 RATIO (0.9-2.4); AST(SGOT) 13 U/L (15-37); Alanine Aminotransfer ALT/SGPT 27 U/L (13-56); Albumin, Serum 3.9 g/dL (3.2-5.0); Alkaline Phosphatase 151 U/L (45-117); Anion Gap 6 (5-15); BUN 11 mg/dL (7-18); BUN/Creat Ratio 18.8 RATIO (10-20); Calcium,Total 8.8 mg/dL (8.5-10.1); Chloride 108 mmol/L (98-107); Creatinine, Serum 0.58 mg/dL (0.55-1.02); EST Glomerular Filtration Rate 114 mL/min (>60); Est Glom Filt Rate - Afr Amer 137 mL/min (>60); Estimated Creatinine Clearance 78.72 ml/min; Globulin 3.5 g/dL (2.2-4.2); Glucose 104 mg/dL (74-106); Potassium 3.7 mmol/L (3.5-5.1); Protein, Total 7.4 g/dL (6.4-8.2); Sodium Level 138 mmol/L (136-145)
[2020-06-27 03:29] VITALS: PULSE 81; RESP 16; O2SAT 94
== END 2020-06-27 05:00 | disposition home or self-care (01) ==
PROVIDERS: Emergency Provider Emergency Medicine; PCP Internal Medicine
DX: F11.93 Opioid use, unspecified with withdrawal (principal); R06.02 Shortness of breath; T40.2X5A Adverse effect of other opioids, initial encounter; G89.29 Other chronic pain; F41.9 Anxiety disorder, unspecified; F32.9 Major depressive disorder, single episode, unspecified; Z79.891 Long term (current) use of opiate analgesic; F17.200 Nicotine dependence, unspecified, uncomplicated
CPT/HCPCS: 71045; 80053; 84484; 85025; 87635; 93005; 99285; U0005; U0003

== ENCOUNTER 2020-07-15 07:51 | Outpatient (RCR) | payer MEDICAID, SELFPAY ==
--- NOTE | 2020-07-15 13:57 | HP.PTEVAL_ITS ---
Patient's Visit Information TANA GOLDBERG is a 54 year old F referred to Physical Therapy by JENNIFER AMOS with a diagnosis of S/P lumbar spinal fusion, secondary kyphosis of thoracolumbar region. Date of Evaluation: 07/15/20 Physical Therapist: Den Desai DPT - Visit Plan Frequency: 2x /Week Duration: 4-6 Weeks Plan: Start with BLE strengthening, core strengtheing. Trial DN for pain, general neutral spine core strengthening, gait progressing. May consider aquatic exsercises if land is not progressing as expected. - Subjective Pt. is here today for her initial evaluation with diagnosis of s/p lumbar spinal fusion, thoracolumbar kyphosis. Spinal fusion Feb 2020. Pt. reports having 10/10 pain in lumbar spine. She does report some numbness and tingling in her leg, L worse than R. Sleeping: worse since surgery, sleeps on her side. Increase her pain: standing, walking, lifting, bending. Decreased pain: sitting. I have good days and bad days. She continues to talk about the reduction in her pain meds throughout objective intake. Pt. reports being frustrated with her pain management. Pt. has a history of multiple back surgeries and was in hospital for 8 days after this most rescent surgery. Pt. lives by her self, 1 floor. Boyfriend lives [place] and kids are available frequently. Pt. reports wanting to reduce symptoms, increase LE strength and walk without her walking. - Pain Lumbar spine Pain Intensity (Out of 10): 10 Pain Intensity Range: 4, 10 Thoracic spine Pain Intensity (Out of 10): 10 Pain Intensity Range: 6, 10 cervical spine Pain Intensity (Out of 10): 1 Pain Intensity Range: 0, 1 - Objective POSTURE: Pt. has very flexed posture throughout lumbar and thoracic spine. Pt. uses FWW for stability in stance. PALPATION: Pt. has a large insicsion from lower sacrum to upper thoracic spine. Tenderness along lumbar erector spinea and posterior hips. No signs of infection noted. NEURO: Pt. had deminished achilles and patellar reflexes 1+ bilaterally. Pt. has has normal sensation, except and L lateral thigh. ROM: Lumbar spine: flexion- nil loss ne increase in symptoms; ext- max loss stiffness, rotation- mod loss bilat stiffness, SB mod loss bilat. Pt. has good HS length, tight flexors bilat. MMT: Pt. has 4/5 strength throughout BLEs. Core strength poor. GAIT: Pt. ambulates with flexed posture, heavy use of AD. Pt. is able to correct some of her posture, but has difficulty maintaining. - Goals Goal 1:: LTG: Pt. to be I with HEP. Goal Time Frame: 4-6 Weeks Goal 2:: LTG: Pt. to sleep with 5/10 pain. Goal Time Frame: 4-6 Weeks Goal 3:: LTG: pt. to ambulate wtih FWW upto 1000' with decreased low back to pain to 5/10. Goal 4:: LTG: Pt. to ambulate household distancreased with out AD safely with 5/10 pain. Goal Time Frame: 4-6 Weeks Goal 5:: LTG: Pt. to have increased core and BLE strength by 1/2 of all effected musculature. Goal Time Frame: 4-6 Weeks - Rehabilitation Potential Physical Therapy Diagnosis: Pt. has signs and symptoms consistent with BLE/core weakness, difficulty with gait, increased pain and decreased functional mobility. Pt. would benefit from PT to work on the above limitations progressing back to all functional mobility as tolerated. Rehabilitation Potential: Fair - Anticipated Interventions Patient/Client Instruction: Educate patient on: Condition, Plan of Care, Risk Factors, Benefits of Fitness Program For the Purpose of:: To improve decision making, To facilitate caregiver knowledge, To improve self management, To prevent re-injury, To improve ability to perform tasks related to life management, To improve tolerance to ADL's Therapeutic Exercise to Include: Strength training, Power training, Body mechanics, Postural training, Flexibilty training, Gait and locomotor training, In an aquatic setting, Passive ROM, Active ROM, Dynamic Lumbar Stabilization For the Purpose of:: To decrease pain, To decrease swelling/inflammation, To increase ROM, To improve nutrient delivery to tissue, To improve muscle per formance and motor function, To improve ability to perform ADL's, To improve performance and independence with ADL's, To improve ability of physical actions for home/community/work/leisure, To improve gait and locomotor functions, To improve health of tissue, To decrease soft tissue restriction, To increase flexibility/ROM, To improve endurance Manual Therapy Techniques to Include: Functional dry needling, Soft tissue mobilization For the Purpose of:: To decrease pain, To decrease swelling/inflammation, To increase ROM, To improve nutrient delivery to tissue, To improve health of tissue, To decrease soft tissue restriction Thank you for the opportunity to evaluate your patient. For Medicare and Medicare HMO plans, please review the plan of care and approve it. It will need to be FAXED BACK to us at [phone] for Medicare purposes. For Medicare only, by signing this I certify the plan of care. Please let me know if there are questions or concerns regarding this plan of care. Physician Signature: Date:
--- NOTE | 2020-11-05 14:06 | HP.PT.NRP ---
TANA GOLDBERG was seen in my office for initial evaluation on 07/15/20. The following Plan of Care was established for this patient: Initial Frequency: 2x /Week Initial Duration: 4-6 Weeks Patient/Client Instruction: Educate patient on: Condition, Plan of Care, Risk Factors, Benefits of Fitness Program For the Purpose of:: To improve decision making, To facilitate caregiver knowledge, To improve self management, To prevent re-injury, To improve ability to perform tasks related to life management, To improve tolerance to ADL's Therapeutic Exercise to Include: Strength training, Power training, Body mechanics, Postural training, Flexibilty training, Gait and locomotor training, In an aquatic setting, Passive ROM, Active ROM, Dynamic Lumbar Stabilization For the Purpose of:: To decrease pain, To decrease swelling/inflammation, To increase ROM, To improve nutrient delivery to tissue, To improve muscle performance and motor function, To improve ability to perform ADL's, To improve performance and independence with ADL's, To improve ability of physical actions for home/community/work/leisure, To improve gait and locomotor functions, To improve health of tissue, To decrease soft tissue restriction, To increase flexibility/ROM, To improve endurance Manual Therapy Techniques to Include: Functional dry needling, Soft tissue mobilization For the Purpose of:: To decrease pain, To decrease swelling/inflammation, To increase ROM, To improve nutrient delivery to tissue, To improve health of tissue, To decrease soft tissue restriction This patient was last seen in our office 07/15/20. Pertinent comments regarding their Physical therapy will appear below: Pt. was seen in PT for her initial evaluation with chronic back pain. Pt. has not been seen since and will be DC from PT at this point in time. At this point I will be discontinuing this patient from physical therapy. I would be happy to see this patient again in the future if found appropriate by the physician. Thank you! Den Desai DPT
== END 2020-07-15 19:00 | disposition home or self-care (01) ==
LOC: PT 07:51
PROVIDERS: PCP Internal Medicine
DX: M96.0 Pseudarthrosis after fusion or arthrodesis (principal)
CPT/HCPCS: 97161

== ENCOUNTER 2020-08-20 08:00 | Emergency (ER) | payer MEDICAID, SELFPAY ==
[2020-08-20 08:01] VITALS: BP 119/93; PULSE 87; RESP 18; TEMP 36.9; O2SAT 97; BMI 26.9
[2020-08-20] MEDS: Dicyclomine 10 MG Capsule 20 MG PO (08:29)
[2020-08-20] MEDS: Ketorolac 15 MG/ML Vial IV (08:30)
[2020-08-20] MEDS: Ondansetron 4 MG/2 ML Vial IV (08:30)
[2020-08-20] MEDS: 0.9% Normal Saline 1,000 ML 1000 ML IV (08:32)
[2020-08-20 08:34] LABS: Absolute Neutrophil Count 4.5 X10^3/uL (2.0-7.7); Basophil# 0.03 X10^3/uL; Basophil% 0.5 % (0-1); Eosinophil# 0.02 X10^3/uL; Eosinophils% 0.3 % (0-5); Hematocrit 44.9 % (37-47); Hemoglobin 15.2 g/dL (12.0-15.0); Lymphocyte % 17.5 % (19-41); Mean Corp Hgb Conc 33.9 g/dL (32-36); Mean Corpuscular Hgb 32.6 pg (27.0-32.0); Mean Corpuscular Volume 96.4 fL (81-99); Mean Platelet Vol. 12.2 fl (6.2-12.0); Monocyte# 0.58 X10^3/uL; Monocyte% 9.2 % (0-10); NRBC Flagged by Analyzer 0 % (0-5); Neutrophil # 4.52 X10^3/uL (2.7-7.7); Platelet Count 204 K/mm3 (150-450); RBC Distribution Width CV 13.9 % (11.6-14.6); RBC Distribution Width SD 49.2 fl (35.1-43.9); Red Blood Count 4.66 M/mm3 (4.2-5.4); White Blood Count 6.3 K/mm3 (4.4-11.0)
[2020-08-20 08:51] LABS: ALB/GLOB Ratio 1.2 RATIO (0.9-2.4); AST(SGOT) 11 U/L (15-37); Alanine Aminotransfer ALT/SGPT 22 U/L (13-56); Albumin, Serum 4.3 g/dL (3.2-5.0); Alkaline Phosphatase 108 U/L (45-117); Anion Gap 7 (5-15); BUN 15 mg/dL (7-18); Calcium,Total 9.6 mg/dL (8.5-10.1); Chloride 103 mmol/L (98-107); Creatinine, Serum 0.63 mg/dL (0.55-1.02); EST Glomerular Filtration Rate 105 mL/min (>60); Est Glom Filt Rate - Afr Amer 127 mL/min (>60); Estimated Creatinine Clearance 72.47 ml/min; Globulin 3.5 g/dL (2.2-4.2); Glucose 107 mg/dL (74-106); Lipase 90 U/L (73-393); Potassium 3.5 mmol/L (3.5-5.1); Protein, Total 7.8 g/dL (6.4-8.2); Sodium Level 139 mmol/L (136-145)
--- NOTE | 2020-08-20 09:11 | ED.VIS.GI ---
History of Present Illness Chief Complaint: Abd Pain Narrative: Patient presenting for evaluation secondary to abdominal pain. Patient reports that she has been dealing with back pain and abdominal pain since February when she had a revision of her spine surgery secondary to broken rods in her spine. Patient states that this is basically been a continuous gnawing type pain. Patient tells me that today it was associated with some mild nausea she denies any vomiting she denies diarrhea she denies any presence of fevers. She reports that she has been doing her pain management follow-ups, and pain management currently has her on Lyrica. She reports that she is being weaned off of tramadol and this potentially could be the cause of her pain. She reports that this morning she felt somewhat diaphoretic. I contacted the patient's primary care, and she states that the patient has had multiple episodes where she either was losing her medications or not getting to follow-up appointments and has had multiple work-ups for this abdominal pain. Past Medical History - Allergies and Home Meds Allergies/Adverse Reactions: Allergies buspirone [From BuSpar] Allergy (Verified 08/20/20 08:06) Hives escitalopram [From Lexapro] Adverse Reaction (Verified 08/20/20 08:06) Rash gabapentin Adverse Reaction (Verified 08/20/20 08:06) Nausea/Vom/Diarrhea ANTIDEPRESSANT-UNKNOWN NAME Allergy (Uncoded 08/20/20 08:06) Other PT UNABLE TO TOLERATE Primary Care Physician: Amanda Cyr MD [Primary Care Provider] - As Needed Prior records reviewed: Yes Past Medical History: - - Tonic back pain, opiate dependence Surgical History: - - Multiple back surgeries Smoking Status: Current every day smoker Review of Systems All systems negative except as indicated General: Reports: - - Diaphoresis Eyes: Denies: Visual changes - bilaterally, Diplopia ENT: Denies: Rhinorrhea, Sore throat Cardiovascular: Denies: Chest pain, Palpitations Respiratory: Denies: Dyspnea, Cough, Dyspnea on exertion Gastrointestinal: Reports: Abdominal pain, Nausea Genitourinary: Denies: Dysuria, Hematuria, Frequency Musculoskeletal: Reports: Back pain Skin: Denies: Rash, Wounds Neurological: Denies: Headache, Weakness, Numbness Physical Exam Vital Signs/Narrative: Vital Signs Temp Pulse Resp BP Pulse Ox 08/20/20 08:01 98.5 F 87 18 119/93 H 97 Inital Vital Signs reviewed: Yes General: Well nourished, Well developed, No Acute Distress Head: Normocephalic, Atraumatic Eyes: Perrl, EOMI ENT: Moist mucous membranes, No rhinorrhea Neck: Supple, Nontender Cardiovascular: Regular rate, Regular rhythm, No murmurs Respiratory: No distress, CTA bilaterally, Chest nontender Abdomen: Soft, Nondistended, Normal bowel sounds, Tender - Epigastric without guarding or rebound Back: Normal Inspection, - - Large well-healing surgical scar of the back with diffuse tenderness no localization Extremities: Nontender, No edema Skin: Normal color, No rash Neurological: Alert, Oriented x3, Cranial nerves II-XII grossly intact, Normal Strength, Normal Sensation Psychological: Normal affect, Normal Mood Diagnostic/Tx/Re-eval Laboratory Data 08/20/20 08/20/20 08:15 08:15 WBC 6.3 RBC 4.66 Hgb 15.2 H Hct 44.9 MCV 96.4 MCH 32.6 H MCHC 33.9 RDW Std Deviation 49.2 H RDW Coeff of Logan 13.9 Plt Count 204 MPV 12.2 H Immature Gran % (Auto) 0.500 Neut % (Auto) 72.0 H Lymph % (Auto) 17.5 L Branch % (Auto) 9.2 Eos % (Auto) 0.3 Baso % (Auto) 0.5 Absolute Neuts (auto) 4.5 Absolute Lymphs (auto) 1.10 Nucleated RBC % 0 Sodium 139 Potassium 3.5 Chloride 103 Carbon Dioxide 29.0 Anion Gap 7 BUN 15 Creatinine 0.63 Estim Creat Clear Calc 72.47 Est GFR (MDRD) Af Amer 127 Est GFR (MDRD) Non-Af 105 BUN/Creatinine Ratio 24.0 H Glucose 107 H Calcium 9.6 Total Bilirubin 0.40 AST 11 L ALT 22 Alkaline Phosphatase 108 Total Protein 7.8 Albumin 4.3 Globulin 3.5 Albumin/Globulin Ratio 1.2 Lipase 90 - Medical Decision Making Patient presented secondary to chronic abdominal pain and back pain. I had discussion with the patient's primary care physician and after speaking with the patient it seems that she likely is experiencing the symptoms as a result of opiate withdrawal. Patient while in the emergency department was treated with Zofran Toradol Bentyl and fluids. Her laboratory work-up was found to be unremarkable. She does not have tachycardic diaphoresis signs of altered mental status or any indication that this is a dangerous withdrawal. Patient told me when I told her that I would not be sending her home with any medications that she lost her Lyrica and Klonopin and was asking if I could either send her home with that or with something for pain. I informed the patient that I would likely not be doing this. I do have suspicion that this is drug-seeking behavior. Patient was discharged with assistance of security. ED Disposition - Plan for ED Patient: Disposition: Home or Assisted Living Diagnosis: Chronic pain, Drug-seeking behavior Instructions: ED Chronic Pain Referrals: Amanda Cyr MD [Primary Care Provider] - As Needed
--- NOTE | 2020-08-20 09:33 | ED.RN ---
pt refusing to leave. dr chun in room multiple ti,es, this rn in to explain to pt multiple times also. pt aware needs to go to her pain management [facility]. dr chun requests if pt will not leave that security be called to escort pt off premises. has talked to pt primary physician who has agreed to treatment plan
[2020-08-20 09:47] VITALS: BP 98/79; PULSE 80; RESP 18; O2SAT 98
== END 2020-08-20 09:48 | disposition home or self-care (01) ==
PROVIDERS: Emergency Provider Emergency Medicine; PCP Internal Medicine
DX: G89.29 Other chronic pain (principal); R10.13 Epigastric pain; M54.9 Dorsalgia, unspecified; F17.200 Nicotine dependence, unspecified, uncomplicated; Z76.5 Malingerer [conscious simulation]
CPT/HCPCS: 80053; 83690; 85025; 96361; 96374; 96375; 99285; J7030; A4216; J2405

== ENCOUNTER 2020-08-21 01:10 | Emergency (ER) | payer MEDICAID, SELFPAY ==
[2020-08-20 08:01] VITALS: BMI 26.9
[2020-08-21 01:11] VITALS: BP 142/104; PULSE 87; RESP 18; TEMP 36.9; O2SAT 95; BMI 26.9
--- NOTE | 2020-08-21 02:01 | ED.VIS.GEN ---
History of Present Illness Chief Complaint: Substance Abuse Informant: Patient Narrative: Patient presents reporting nausea vomiting and diarrhea. She stated she is withdrawing from tramadol and pregabalin. She is not taken for several days as they came up missing. Seen here for similar complaint yesterday. Requesting pain medication at this time. Patient seems to think she is in withdrawal. Brought in for further evaluation. Denies any shakiness or piloerection or other opiate symptoms. Review of the patient's chart shows that she has a history of pain seeking behavior - Past Medical History (1) Preoperative cardiovascular examination Status: Acute (2) Constipation Status: Chronic (3) Hemorrhoids Status: Chronic Past Medical History - Allergies and Home Meds Allergies/Adverse Reactions: Allergies buspirone [From BuSpar] Allergy (Verified 08/20/20 08:06) Hives escitalopram [From Lexapro] Adverse Reaction (Verified 08/20/20 08:06) Rash gabapentin Adverse Reaction (Verified 08/20/20 08:06) Nausea/Vom/Diarrhea ANTIDEPRESSANT-UNKNOWN NAME Allergy (Uncoded 08/20/20 08:06) Other PT UNABLE TO TOLERATE Primary Care Physician: Amanda Cyr MD [Primary Care Provider] - Prior records reviewed: Yes Past Medical History: - - Problem list Surgical History: - - Multiple back surgeries Smoking Status: Current every day smoker Alcohol: None Drugs: None Review of Systems General: Denies: Chills, Fever, Sweats Eyes: Denies: Visual changes - bilaterally, Diplopia ENT: Denies: Rhinorrhea, Sore throat Cardiovascular: Denies: Chest pain, Palpitations Respiratory: Denies: Dyspnea, Cough, Dyspnea on exertion Gastrointestinal: Reports: Nausea, Vomiting, Diarrhea. Denies: Abdominal pain, Melena, Hematochezia Genitourinary: Denies: Dysuria, Hematuria, Frequency Musculoskeletal: Denies: Back pain, Extremity Pain Skin: Denies: Rash, Wounds Neurological: Denies: Headache, Weakness, Numbness Physical Exam Vital Signs/Narrative: Vital Signs Temp Pulse Resp BP Pulse Ox 08/21/20 01:11 98.5 F 87 18 142/104 H 95 General: Well nourished, Well developed, No Acute Distress Head: Normocephalic, Atraumatic Eyes: Perrl, EOMI ENT: Moist mucous membranes, No rhinorrhea Neck: Supple, Nontender Cardiovascular: Regular rate, Regular rhythm, No murmurs Respiratory: No distress, CTA bilaterally, Chest nontender Abdomen: Soft, Nontender, Nondistended, Normal bowel sounds Back: Nontender, Normal Inspection Extremities: Nontender, No edema Skin: Normal color, No rash Neurological: Alert, Oriented x3, Cranial nerves II-XII grossly intact, Normal Strength, Normal Sensation Psychological: Normal affect, Normal Mood Diagnostic/Tx/Re-eval - Medical Decision Making Patient appears well. She is not tachycardic. She does not appear like she is going through withdrawal. Gave her an injection of Toradol and oral dissolving Zofran. I do not feel she needs repeat lab work she has had this yesterday. She is requesting narcotic pain medicine I stated she has to get this from her family doctor. ED Disposition - Plan for ED Patient: Disposition: Home or Assisted Living Diagnosis: Chronic pain Instructions: ED Chronic Pain Referrals: Amanda Cyr MD [Primary Care Provider] -
[2020-08-21] MEDS: Ondansetron ODT 4 MG Tablet 8 MG PO (02:08)
[2020-08-21] MEDS: Ketorolac 15 MG/ML Vial IM (02:08)
== END 2020-08-21 02:21 | disposition home or self-care (01) ==
PROVIDERS: Emergency Provider Emergency Medicine; PCP Internal Medicine
DX: G89.29 Other chronic pain (principal); F17.200 Nicotine dependence, unspecified, uncomplicated
CPT/HCPCS: 96372; 99283

== ENCOUNTER 2020-08-22 08:18 | Observation (INO) | payer MEDICAID, SELFPAY ==
[2020-08-21 01:11] VITALS: BMI 26.9
[2020-08-22] VITALS (15 sets, daily range): BP systolic 86–213; BP diastolic 54–173; PULSE 45–86; RESP 14–23; TEMP 36.2–36.8; O2SAT 94–98; BMI 27.1; BMI 26.1
--- NOTE | 2020-08-22 08:21 | EKG12_ITS ---
Test Reason : OVERDOSE Blood Pressure : / mmHG Vent. Rate : 080 BPM Atrial Rate : 080 BPM P-R Int : 134 ms QRS Dur : 094 ms QT Int : 372 ms P-R-T Axes : 046 017 023 degrees QTc Int : 429 ms Normal sinus rhythm Normal ECG Confirmed by CJ RAMOS, ESTUARDO ([id number]), scientific editor KAVYA BO ([id number]) on 08/26/2020 1:29:04 PM Referred By: DARREL Confirmed By:BETZAIDA COROAN MD
--- NOTE | 2020-08-22 08:22 | ED.DCSUM_ITS ---
History of Present Illness Chief Complaint: Overdose Informant: Patient Onset: Today Context: Sudden Onset Timing: Continuous Associated Symptoms: Back pain, abdominal pain Narrative: Patient called paramedics because she overdosed on several medications. She states she took clonidine, acetaminophen, and dicyclomine around 10 pills of each, all at roughly the same time. Initially she states that was about an hour ago but then states that she is not sure and cannot remember exactly. She states that she took them because of her pain in her back, she states this has been gradually worsening since her back surgery in February of this past year. As a result she states she took all of her pain medication a couple days ago, and then she states that she is not even sure if she took these medications this morning, she just noticed that they were gone and thinks maybe she took them all a different day. When asked if she was having thoughts of harming herself this morning since she took clonidine in addition to medications for pain, she dances around the question and answers a different question 5 or 6 times, saying things like well I had thoughts of harming myself in the past? and well I think I took the pills maybe a couple days ago? Past Medical History - Allergies and Home Meds Allergies/Adverse Reactions: Allergies buspirone [From BuSpar] Allergy (Verified 08/20/20 08:06) Hives escitalopram [From Lexapro] Adverse Reaction (Verified 08/20/20 08:06) Rash gabapentin Adverse Reaction (Verified 08/20/20 08:06) Nausea/Vom/Diarrhea ANTIDEPRESSANT-UNKNOWN NAME Allergy (Uncoded 08/20/20 08:06) Other PT UNABLE TO TOLERATE Primary Care Physician: Amanda Cyr MD [Primary Care Provider] - Past Medical History: None Surgical History: - - Multiple back surgeries Smoking Status: Current every day smoker Review of Systems General: Reports: Malaise. Denies: Chills, Fever, Sweats Eyes: Denies: Visual changes - bilaterally, Diplopia ENT: Denies: Bilateral ear pain, Rhinorrhea, Sore throat Cardiovascular: Denies: Chest pain, Palpitations Respiratory: Denies: Dyspnea, Cough, Dyspnea on exertion Gastrointestinal: Reports: Abdominal pain - Diffuse, since February. Denies: Nausea, Vomiting, Diarrhea, Melena, Hematochezia Genitourinary: Denies: Dysuria, Hematuria, Frequency Musculoskeletal: Reports: Back pain. Denies: Neck pain, Swelling, Extremity Pain Skin: Denies: Rash, Wounds Neurological: Denies: Headache, Weakness, Numbness Physical Exam Inital Vital Signs reviewed: Yes General: Well nourished, Well developed, No Acute Distress Head: Normocephalic, Atraumatic Eyes: Perrl, EOMI ENT: Moist mucous membranes, No rhinorrhea Neck: Supple, Nontender, No lymphadenopathy, No JVD Cardiovascular: Regular rate, Regular rhythm, No murmurs Respiratory: No distress, CTA bilaterally, Chest nontender Abdomen: Soft, Nontender, Nondistended, Normal bowel sounds Back: Nontender, Normal Inspection Extremities: Nontender, No edema Skin: Normal color, No rash, No Trauma Neurological: Alert, Oriented x3, Cranial nerves II-XII grossly intact, Normal Strength, Normal Sensation, Normal Gait Psychological: Normal affect - odd, Normal Mood Diagnostic/Tx/Re-eval Impressions Brain CT 08/22/20 08:27 IMPRESSION: Normal unenhanced CT scan of the brain. Electronically Signed: Nacho Azul MD at 10:46 EDT , Service support , Chest X-Ray 08/22/20 08:53 IMPRESSION: The lungs are clear. Electronically Signed: Nacho Azul MD at 11:21 EDT , Service support , 08/22/20 08:27 CT Head [Brain/Head without Contrast] [CT] Stat 08/22/20 08:53 Chest 1 View (Portable) [RAD] Stat 08/22/20 12:35 Mucosa - Nose SARS-CoV-2 Antigen (Rapid) - Final Laboratory Results 08/22/20 08/22/20 08/22/20 08:30 08:30 08:30 WBC 6.1 RBC 4.51 Hgb 14.8 Hct 43.2 MCV 95.8 MCH 32.8 H MCHC 34.3 RDW Std Deviation 48.0 H RDW Coeff of Logan 13.5 Plt Count 217 MPV 12.1 H Immature Gran % (Auto) 0.200 Neut % (Auto) 67.0 Lymph % (Auto) 22.3 Carson % (Auto) 9.5 Eos % (Auto) 0.3 Baso % (Auto) 0.7 Absolute Neuts (auto) 4.1 Absolute Lymphs (auto) 1.36 Nucleated RBC % 0 PT 13.1 INR 1.1 Sodium 136 Potassium 3.8 Chloride 101 Carbon Dioxide 28.0 Anion Gap 7 BUN 13 Creatinine 0.67 Estim Creat Clear Calc 68.15 Est GFR (MDRD) Af Amer 118 Est GFR (MDRD) Non-Af 97 BUN/Creatinine Ratio 19.5 Glucose 164 H Calcium 9.2 Total Bilirubin 0.40 AST 16 ALT 26 Alkaline Phosphatase 109 Troponin I < 0.015 Total Protein 7.5 Albumin 4.1 Globulin 3.4 Albumin/Globulin Ratio 1.2 Urine Color Urine Clarity Urine pH Ur Specific [place] Urine Protein Urine Glucose (UA) Urine Ketones Urine Occult Blood Urine Nitrite Urine Bilirubin Urine Urobilinogen Ur Leukocyte Esterase Urine RBC Urine WBC Ur Squamous Epith Cells Urine Bacteria Urine Mucus Salicylates Urine Opiates Screen Urine Methadone Screen Acetaminophen Ur Barbiturates Screen Ur Phencyclidine Scrn Ur Amphetamines Screen U Methamphetamin-MDMA U Benzodiazepines Scrn Urine Cocaine Screen U Cannabinoids Screen Ur Drug Screen Comment Ethyl Alcohol 08/22/20 08/22/20 08/22/20 08:30 08:30 12:31 WBC RBC Hgb Hct MCV MCH MCHC RDW Std Deviation RDW Coeff of Logan Plt Count MPV Immature Gran % (Auto) Neut % (Auto) Lymph % (Auto) Carson % (Auto) Eos % (Auto) Baso % (Auto) Absolute Neuts (auto) Absolute Lymphs (auto) Nucleated RBC % PT INR Sodium Potassium Chloride Carbon Dioxide Anion Gap BUN Creatinine Estim Creat Clear Calc Est GFR (MDRD) Af Amer Est GFR (MDRD) Non-Af BUN/Creatinine Ratio Glucose Calcium Total Bilirubin AST ALT Alkaline Phosphatase Troponin I Total Protein Albumin Globulin Albumin/Globulin Ratio Urine Color Urine Clarity Urine pH Ur Specific [place] Urine Protein Urine Glucose (UA) Urine Ketones Urine Occult Blood Urine Nitrite Urine Bilirubin Urine Urobilinogen Ur Leukocyte Esterase Urine RBC Urine WBC Ur Squamous Epith Cells Urine Bacteria Urine Mucus Salicylates 3.6 Urine Opiates Screen Urine Methadone Screen Acetaminophen 76.7 H* 20.1 Ur Barbiturates Screen Ur Phencyclidine Scrn Ur Amphetamines Screen U Methamphetamin-MDMA U Benzodiazepines Scrn Urine Cocaine Screen U Cannabinoids Screen Ur Drug Screen Comment Ethyl Alcohol 4.0 08/22/20 08/22/20 13:01 13:01 WBC RBC Hgb Hct MCV MCH MCHC RDW Std Deviation RDW Coeff of Logan Plt Count MPV Immature Gran % (Auto) Neut % (Auto) Lymph % (Auto) Carson % (Auto) Eos % (Auto) Baso % (Auto) Absolute Neuts (auto) Absolute Lymphs (auto) Nucleated RBC % PT INR Sodium Potassium Chloride Carbon Dioxide Anion Gap BUN Creatinine Estim Creat Clear Calc Est GFR (MDRD) Af Amer Est GFR (MDRD) Non-Af BUN/Creatinine Ratio Glucose Calcium Total Bilirubin AST ALT Alkaline Phosphatase Troponin I Total Protein Albumin Globulin Albumin/Globulin Ratio Urine Color Yellow Urine Clarity Clear Urine pH 5.0 Ur Specific [place] 1.020 Urine Protein Negative Urine Glucose (UA) Normal Urine Ketones Negative Urine Occult Blood Negative Urine Nitrite Negative Urine Bilirubin Negative Urine Urobilinogen Normal Ur Leukocyte Esterase Negative Urine RBC 0 SEEN Urine WBC 0 SEEN Ur Squamous Epith Cells 0 SEEN Urine Bacteria 0 SEEN Urine Mucus 1+ Salicylates Urine Opiates Screen NEGATIVE Urine Methadone Screen NEGATIVE Acetaminophen Ur Barbiturates Screen NEGATIVE Ur Phencyclidine Scrn NEGATIVE Ur Amphetamines Screen NEGATIVE U Methamphetamin-MDMA NEGATIVE U Benzodiazepines Scrn NEGATIVE Urine Cocaine Screen NEGATIVE U Cannabinoids Screen NEGATIVE Ur Drug Screen Comment Ethyl Alcohol - Rhythm Strip Rhythm Strip: Sinus Rhythm Rate: 80 Ectopy: None - EKG Initial EKG Interpretation: Sinus Rhythm, No Acute Injury Pattern, - - Normal intervals, normal EKG - Medical Decision Making Patient's acetaminophen level came back elevated in the 70s as above. We attempted to repeat this later, about 3 hours after the initial presentation of the patient to make a 4-hour level based on the patient's best gas about when she could have taken the pills. The blood draw ended up happening a little later than that because of ER business and volume, and it is well within normal limits, making a toxic level extremely unlikely. Shortly after we had her here on the monitor, her systolic blood pressure was 80, making an overdose on clonidine suspicious as she claimed. However, after IV fluids her blood pressure came back up and remained stable. The patient states she is feeling like she is in benzodiazepine withdrawal because she ran out of her Klonopin several days ago. When asked whether she took Klonopin this morning or clonidine, she goes back and forth several times and keeps saying that she thinks she took clonidine. Given this, I think the patient is disoriented, possibly due to the dicyclomine that she took, or possibly due to benzodiazepine withdrawal, or possibly this is her baseline. Regardless I think that the best thing to do would be to admit her to observation in the ICU for close monitoring. Discussed with Dr. Keene with intensive care who agrees with that decision making, in addition to the fact that she does not need N-acetylcysteine at this time. Discussed with hospitalist, and the patient was given Ativan 1 mg as she is being closely monitored. Also, given her mental status, I did a CT of the head which returned showing nothing acute. Of note when the patient arrived we also gave her charcoal 50 g, she drank some of it, but then ended up refusing to drink the rest and was found playing with it, smearing it all over. I do not think it is worth giving her an NG tube to give her the rest of it, however when she wanted her Lyrica, I declined because of the unknown amount of charcoal that she drank would prevent it from being absorbed anyway at this time. ED Disposition - Plan for ED Patient: Disposition: Acute Care Hospital [facility] Diagnosis: Polysubstance overdose, Transient hypotension, Altered mental status Referrals: Amanda Cyr MD [Primary Care Provider] -
--- NOTE | 2020-08-22 08:27 | CT_ITS ---
STUDY: CT BRAIN WITHOUT CONTRAST REASON FOR EXAM: Female, 54 years old. Altered mental status. Overdose. RADIATION DOSAGE (If Supplied By Facility): CTDIvol = ( 44.99 ) mGy, DLP = ( 1216.79 ) mGycm TECHNIQUE: Transaxial CT imaging of the brain was performed without administration of intravenous contrast material. Individualized dose optimization techniques were used for this CT. COMPARISON: No relevant priors. FINDINGS: Normal soft tissue structures. Normal calvarium. Normal size ventricles and extra-axial spaces for the patient''s age. Normal white matter tracts of the cerebral hemispheres. Normal basal ganglia and thalami. Normal brainstem. Normal cerebellum. There is no intracranial hemorrhage. There are no findings of an acute ischemic infarction. Normal visualized paranasal sinuses. CT/Brain/Head without Contrast IMPRESSION: Normal unenhanced CT scan of the brain. Electronically Signed: Nacho Azul MD at 10:46 EDT , Service support ,
[2020-08-22] MEDS: Activated Charcoal 50 GM/240 ML BOT PO (08:30)
[2020-08-22 08:46] LABS: Absolute Lymphocyte Count 1.36 X10^3/uL (0.83-4.51); Absolute Neutrophil Count 4.1 X10^3/uL (2.0-7.7); Basophil# 0.04 X10^3/uL; Basophil% 0.7 % (0-1); Eosinophil# 0.02 X10^3/uL; Eosinophils% 0.3 % (0-5); Hematocrit 43.2 % (37-47); Hemoglobin 14.8 g/dL (12.0-15.0); Lymphocyte # 1.36 X10^3/ul (4.0); Lymphocyte % 22.3 % (19-41); Mean Corp Hgb Conc 34.3 g/dL (32-36); Mean Corpuscular Hgb 32.8 pg (27.0-32.0); Mean Corpuscular Volume 95.8 fL (81-99); Mean Platelet Vol. 12.1 fl (6.2-12.0); Monocyte# 0.58 X10^3/uL; Monocyte% 9.5 % (0-10); NRBC Flagged by Analyzer 0 % (0-5); Neutrophil # 4.08 X10^3/uL (2.7-7.7); Platelet Count 217 K/mm3 (150-450); RBC Distribution Width CV 13.5 % (11.6-14.6); Red Blood Count 4.51 M/mm3 (4.2-5.4); White Blood Count 6.1 K/mm3 (4.4-11.0)
--- NOTE | 2020-08-22 08:53 | RAD_ITS ---
STUDY: X-RAY CHEST REASON FOR EXAM: Female, 54 years old. Hypoxia TECHNIQUE: Single AP portable view of the chest. COMPARISON: Comparison is made with prior study dated 06/27/2020. FINDINGS: EKG electrodes are seen. The lungs are clear and expanded. There is no demonstrated pleural abnormality. Normal size heart. Normal mediastinum and charla. Normal visualized pulmonary arteries. Normal visualized aortic arch and descending thoracic aorta. Lungs again, the patient is status post cyndy and screw fixation of the thoracic and lumbar spines. Normal visualized ribs, clavicles, and shoulders. There is no demonstrated abnormality of the visualized soft tissue structures of the upper abdomen. RAD/Chest 1 View (Portable) IMPRESSION: The lungs are clear. Electronically Signed: Nacho Azul MD at 11:21 EDT , Service support ,
[2020-08-22 09:01] LABS: International Normalized Ratio 1.1; Prothrombin Time (Protime)PT. 13.1 SECONDS (11.7-14.9)
[2020-08-22 09:03] LABS: ALB/GLOB Ratio 1.2 RATIO (0.9-2.4); AST(SGOT) 16 U/L (15-37); Alanine Aminotransfer ALT/SGPT 26 U/L (13-56); Albumin, Serum 4.1 g/dL (3.2-5.0); Alkaline Phosphatase 109 U/L (45-117); Anion Gap 7 (5-15); BUN 13 mg/dL (7-18); BUN/Creat Ratio 19.5 RATIO (10-20); Calcium,Total 9.2 mg/dL (8.5-10.1); Chloride 101 mmol/L (98-107); Creatinine, Serum 0.67 mg/dL (0.55-1.02); EST Glomerular Filtration Rate 97 mL/min (>60); Est Glom Filt Rate - Afr Amer 118 mL/min (>60); Estimated Creatinine Clearance 68.15 ml/min; Globulin 3.4 g/dL (2.2-4.2); Glucose 164 mg/dL (74-106); Potassium 3.8 mmol/L (3.5-5.1); Protein, Total 7.5 g/dL (6.4-8.2); Sodium Level 136 mmol/L (136-145)
[2020-08-22] MEDS: 0.9% Normal Saline 1,000 ML 999 ML IV ×2 (09:09→20:07)
[2020-08-22 09:21] LABS: Acetaminophen (Tylenol) Level 76.7 ug/mL (10.0-30.0); Salicylate 3.6 mg/dL (2.8-20.0)
--- NOTE | 2020-08-22 09:38 | ED.RN ---
76.7 acetaminophen level called by lab. dr gillette
[2020-08-22 13:06] LABS: Bacteria 0 SEEN /hpf (None Seen); Red Blood Cells-Urine 0 SEEN /hpf (0-5); Squamous Epithelial Cells - UA 0 SEEN /hpf (5-10); White Blood Cells 0 SEEN /hpf (0-5)
[2020-08-22 13:15] LABS: Acetaminophen (Tylenol) Level 20.1 ug/mL (10.0-30.0)
[2020-08-22 13:15] LABS: Color, Urine Yellow (Yellow); Glucose, Dipstick Normal (Normal); Ketone-Dipstick Negative (Negative); Leukocyte Esterase-Dipstick Negative /ul (Negative); Nitrite-Dipstick Negative (Negative); Occult Blood-Urine Negative /ul (Negative); Protein-Dipstick Negative (Negative); Urine Bilirubin Dipstick Negative (Negative); Urine Clarity Clear (Clear); Urine Urobilinogen Normal (Normal)
[2020-08-22 13:21] LABS: Mucous, Urine 1+ /hpf (<or=2+)
[2020-08-22 13:37] LABS: Amphetamine Urine VISTA NEGATIVE (<1000 ng/mL); Barbiturate Urine VISTA NEGATIVE (< 200 ng/mL); Benzodiazepine Urine VISTA NEGATIVE (< 200 ng/mL); Cocaine Urine VISTA NEGATIVE (< 300 ng/mL); Ecstacy Urine VISTA NEGATIVE (< 500 ng/mL); Methadone Urine VISTA NEGATIVE (< 300 ng/mL); PCP Urine VISTA NEGATIVE (< 25 ng/mL); THC Urine VISTA NEGATIVE (< 50 ng/mL); Vista UDS pH Range 5
--- NOTE | 2020-08-22 14:32 | HP.PCM_ITS ---
Problem List (1) PTSD (post-traumatic stress disorder) Status: Chronic (2) Anxiety and depression Status: Chronic (3) Polysubstance overdose Status: Chronic (4) Transient hypotension Status: Acute (5) Altered mental status Status: Acute (6) Preoperative cardiovascular examination Status: Resolved (7) Constipation Status: Chronic (8) Hemorrhoids Status: Chronic History of Present Illness Date of Admission: 08/22/20 Chief Complaint: Accidental drug overdose The patient is a 54 year old F with history of back pain and back surgery on multiple pain medication was brought in by paramedics after she overdosed on unknown amounts of different medications. Patient frequently changes her history regarding timing of overdose, quantity and type of medications. Initially she said she took clonazepam, acetaminophen and dicyclomine around 10 pills of each about 2 to 3 days ago. Then she said she did not take clonazepam but took about 2 pills of Tylenol and 10 pills of Bentyl. During my history taking, she continuously asking for more pain medications including tramadol, Lyrica and clonazepam. In ED, patient had charcoal and 1 L of normal saline bolus. Currently, patient is oriented to time, place and person but she is restless, anxious and hard to believe her history and review of system. She had multiple recurrent ER visits for back pain, hip pain. She was recently seen on 08/21 for opioid withdrawal too. She has long surgical scar from thoracic spine to lumbar spine. She has history of degenerative scoliosis and lumbar spinal stenosis and neck pain. [] In ED, vitals shows heart rate in 50s, blood pressure initially 94/72 then 112/90. And respiratory rate 14 to 19/min. Pulse ox normal 97% on room air. Initial Tylenol level was high 76.7 but repeat after 4 hours is normal. U tox negative. Ethyl alcohol normal. Salicylate 3.6. UA is negative for nitrite, LE and pyuria. She denies dysuria. Liver chemistry within normal limit. Glucose 164. CBC within normal limit. EKG shows normal sinus rhythm at 80 bpm. QTC 429 ms. Chest x-ray shows lungs are clear. Past Medical History Past Medical History (Chronic Problems): Chronic Problems (Last Reviewed 01/16/20 @ 13:[address] Laverne Aldana MD) Polysubstance overdose (Chronic) PTSD (post-traumatic stress disorder) (Chronic) Anxiety and depression (Chronic) Constipation (Chronic) Hemorrhoids (Chronic) Medical History: Medical History (Last Reviewed 01/16/20 @ 13:[address] Laverne Aldana MD) Constipation (Chronic) K59.00 Hemorrhoids (Chronic) K64.9 Anxiety F41.9 Constipation K59.00 Scoliosis M41.9 History of benign breast biopsy Z98.890 Surgical wound dehiscence (Resolved) T81.31XA Screen for colon cancer (Inactive) Z12.11 Allergies buspirone [From BuSpar] Allergy (Verified 08/20/20 08:06) Hives escitalopram [From Lexapro] Adverse Reaction (Verified 08/20/20 08:06) Rash gabapentin Adverse Reaction (Verified 08/20/20 08:06) Nausea/Vom/Diarrhea ANTIDEPRESSANT-UNKNOWN NAME Allergy (Uncoded 08/20/20 08:06) Other PT UNABLE TO TOLERATE Home Medications: Ambulatory Orders Medication Instructions Recorded Pregabalin [Lyrica] 300 mg PO BID 05/16/16 clonazepam 0.5 mg disintegrating 0.5 mg PO BID 11/15/17 tablet dicyclomine 20 mg tablet 20 mg PO Q6H PRN 11/15/17 lactulose 10 gram/15 mL oral 10 g PO ONCE PRN 11/15/17 solution Albuterol Sulfate [Albuterol 2 puff INHALATION Q4H PRN PRN 08/22/20 Sulfate HFA] Fluticasone 0.05% [Flonase Nasal 1 spray NASAL DAILY 08/22/20 [place]] Methocarbamol 750 mg PO Q6H PRN PRN 08/22/20 traMADol [Ultram (G)] 50 mg PO DAILY PRN PRN 08/22/20 Surgical History: Surgical History (Last Reviewed 01/16/20 @ 13:[address] Laverne Aldana MD) H/O Spinal surgery Z98.890 x 2 H/O colonoscopy Z98.890 History of carpal tunnel repair Z98.890 history of finger surgery right foot tendon transfer Surgical History: - - Multiple back surgeries Smoking Status: Unknown if ever smoked Tobacco Use: Cigarettes - *Family History Paternal Family History: Family History (Last Reviewed 08/22/20 @ 14:[address] Chavez Guerrier MD) Brother Cancer History Items: - - Denies history of schizophrenia or mental health issues in first-degree family relative. Review of Systems Constitutional: Denies: Chills, Fever Cardiovascular: Denies: Chest Pain Respiratory: Denies: Cough Gastrointestinal: Denies: Abdominal Pain, Diarrhea, Hematemesis, Hematochezia, Melena, Vomiting Genitourinary: Denies: Dysuria, Frequency, Hematuria, Hesitancy Musculoskeletal: Reports: Back Pain Neurological: Reports: Balance problems Psychiatric: Reports: Anxiety, Depression Unable to obtain accurate/complete ROS d/t: Restless, anxious, changes history, encephalopathy VTE Information - Inpt Only VTE Present on Admission: No VTE Mechan Device Prophylaxis: None VTE Pharm Prophylaxis ordered?: Yes Patient Problems: Active and Suspected Problems (Last Reviewed 01/16/20 @ 13:[address] Laverne Aldana MD) Transient hypotension (Acute) Altered mental status (Acute) Objective: General: Awake, oriented x3 but unaware of circumstances/situation. HEENT: Atraumatic, PERRLA, EOMI, Normocephalic Oral: No Gingival or Mucosal Lesions/ Ulcerations Neck: Supple, No JVD, Negative Carotid Bruits Lungs: Air entry diminished in bilateral lung bases. No crepitation/rhonchi Cardiovascular: Regular rate, Regular Rhythm, Normal S1, Normal S2, No murmurs Abdomen: Bowel Sounds Present, Soft, Non Tender, Non-Distended : No renal angle tenderness. No suprapubic tenderness. Extremities: No edema, Capillary Refill Less than 3 Seconds Skin: No rashes, No breakdown Musculoskeletal: No Tenderness to Palpation of Joints or Extremities Spine: Large surgical scar all along the back from thoracic spine to lumbar spine. Neurological: Cranial nerves II-XII grossly intact, Deep Tendon Reflexes 2+/4 and Symmetrical, Neuro grossly intact Psych/Mental Status: Anxious, restless. - Physical Exam Vitals/I&O's: Vital Signs Temp Pulse Resp BP Pulse Ox 97.1 F L 63 17 112/90 H 95 08/22/20 08:19 08/22/20 12:31 08/22/20 12:31 08/22/20 12:31 08/22/20 12:31 Oxygen Flow Rate (L/min) 2 Oxygen Delivery Method Room Air Weight: 138 lb 14.259 oz Body Mass Index (BMI) 27.1 Intake and Output for Last 24 Hours 08/20/20 08/21/20 08/22/20 23:59 23:59 23:59 Intake Total 1000 / 1000 Balance 1000 / 1000 Microbiology Past 72 Hours 08/22/20 12:35 Mucosa - Nose SARS-CoV-2 Antigen (Rapid) - Final Laboratory Results 08/22/20 08:30: WBC 6.1, RBC 4.51, Hgb 14.8, Hct 43.2, MCV 95.8, MCH 32.8 H, MCHC 34.3, RDW Std Deviation 48.0 H, RDW Coeff of [place] 13.5, Plt Count 217, MPV 12.1 H, Immature Gran % (Auto) 0.200, Neut % (Auto) 67.0, Lymph % (Auto) 22.3, [place] % (Auto) 9.5, Eos % (Auto) 0.3, Baso % (Auto) 0.7, Absolute Neuts (auto) 4.1, Absolute Lymphs (auto) 1.36, Nucleated RBC % 0 08/22/20 08:30: PT 13.1, INR 1.1 08/22/20 08:30: Sodium 136, Potassium 3.8, Chloride 101, Carbon Dioxide 28.0, Anion Gap 7, BUN 13, Creatinine 0.67, Estim Creat Clear Calc 68.15, Est GFR (MDRD) Af Amer 118, Est GFR (MDRD) Non-Af 97, BUN/Creatinine Ratio 19.5, Glucose 164 H, Calcium 9.2, Total Bilirubin 0.40, AST 16, ALT 26, Alkaline Phosphatase 109, Troponin I < 0.015, Total Protein 7.5, Albumin 4.1, Globulin 3.4, Albumin/Globulin Ratio 1.2 08/22/20 08:30: Ethyl Alcohol 4.0 08/22/20 08:30: Salicylates 3.6, Acetaminophen 76.7 H* 08/22/20 12:31: Acetaminophen 20.1 08/22/20 13:01: Urine Color Yellow, Urine Clarity Clear, Urine pH 5.0, Ur Specific [place] 1.020, Urine Protein Negative, Urine Glucose (UA) Normal, Urine Ketones Negative, Urine Occult Blood Negative, Urine Nitrite Negative, Urine Bilirubin Negative, Urine Urobilinogen Normal, Ur Leukocyte Esterase Negative, Urine RBC 0 SEEN, Urine WBC 0 SEEN, Ur Squamous Epith Cells 0 SEEN, Urine Bacteria 0 SEEN, Urine Mucus 1+ 08/22/20 13:01: Urine Opiates Screen NEGATIVE, Urine Methadone Screen NEGATIVE, Ur Barbiturates Screen NEGATIVE, Ur Phencyclidine Scrn NEGATIVE, Ur Amphetamines Screen NEGATIVE, U Methamphetamin-MDMA NEGATIVE, U Benzodiazepines Scrn NEGATIVE, Urine Cocaine Screen NEGATIVE, U Cannabinoids Screen NEGATIVE, Ur Drug Screen Comment Assessment/Plan All Active Problems (Last Reviewed 01/16/20 @ 13:[address] Laverne Aldana MD) Transient hypotension (Acute) Altered mental status (Acute) Preoperative cardiovascular examination (Resolved) Surgical wound dehiscence (Resolved) This 54-year-old female admitted for drug overdose with exact unclear type of medication, dose and timing. 1. Drug overdose with multiple medications including acetaminophen: Patient is being admitted in ICU. First sternal fluid level was 26.7 and then repeat 20.7 which is suggestive that patient had drug overdose in the morning today. As per acetaminophen nomogram, patient does not meet criteria for treatment with N- acetylcysteine. IV fluid normal saline for sudden diuresis at 100 mill per hour for 2 L. Monitor intake and output. Patient had transient hypotension, BP 88/65 which recovered. Repeat EKG after 4 hours. Troponin and UA normal. 2. History of polysubstance use: It seems patient is on clonazepam 0.5 mg, denies clozapine 20 mg tablet, tramadol and methocarbamol. Liver chemistry is normal. After the dose of medications is confirmed, patient can have pregabalin. 3. Acute encephalopathy mostly due to drug overdose: Treat the underlying disorder. Orientation cues. 4. Other multiple chronic comorbidities include chronic pain syndrome, history of lumbar spinal stenosis, degenerative scoliosis status post back surgery, pain medication dependence, anxiety and PTSD: Patient follows counselor. Need to follow-up psychiatrist for a concrete diagnosis and management plan. VTE prophylaxis: Lovenox 40 mils subcu daily. Living will/advanced directive/end of life care: Patient does not have living will or advanced directive. Patient has a boyfriend but does not live with him. After discussion of benefits/risks procedures involved with full code, DNR CC arrest and DNR CC, the patient opted for full code. Patient does want artificial life support including intubation, tube feed, ventilator and/chest compression, central venous catheter, vasopressor and DC shock if needed Total time spent in [id number] encounter in discussion of advanced directive 16 minutes. Inpatient E&M: 10472 Init Hosp L3 Procedures: 36544 Advncd Care Plan 30 Min
[2020-08-22] MEDS: LORazepam 2 MG/ML Syringe 1 MG IV (14:43)
--- NOTE | 2020-08-22 14:49 | ED.RN ---
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 PT INFORMED THAT SHE NEEDED TO STAY IN BED. CALL LIGHT IS ATTACHED TO SIDE RAIL. PT CONTINUES TO ASK FOR PAIN MEDICATION AND FOR ANXIETY MEDICATION STATING I THINK I'M GOING THROUGH WITHDRAWS. PT REPORTS FEELING ANXIOUS DENIES NAUSEA AT THIS TIME, NOT DIAPHORETIC. PT INFORMED THAT DR STEVE WAS GOING TO ORDER ATIVAN IV. PT EXPLAINED MULTIPLE TIMES THAT PO MEDICATION WOULD NOT BE VERY EFFECTIVE DUE TO CHARCOAL THAT SHE HAD TO SWALLOW. PT HAS CHANGED MULTIPLE TIMES TO WHAT SHE TOOK THIS TODAY. PT SEEMS CONFUSED ASKING THE SAME QUESTION SEVERAL TIMES WITHIN A 5MIN PERIOD.
--- NOTE | 2020-08-22 16:15 | RAD_ITS ---
STUDY: X-RAY CHEST REASON FOR EXAM: Female, 54 years old. drug overdose TECHNIQUE: Single frontal view of the chest. COMPARISON: 08/22/20201929 9:00 PM FINDINGS: CABEZAS rods thoracolumbar spine. Left lower lobe subsegmental atelectasis. There is no demonstrated pleural abnormality. Normal size heart. Normal mediastinum and charla. Normal visualized pulmonary arteries. Normal visualized aortic arch and descending thoracic aorta. Normal visualized thoracic spine. Normal visualized ribs, clavicles, and shoulders. There is no demonstrated abnormality of the visualized soft tissue structures of the upper abdomen. RAD/Chest 1 View (Portable) IMPRESSION: Left lower lobe subsegmental atelectasis Electronically Signed: Apollo Kincaid MD at 23:28 EDT , Service support ,
[2020-08-22] MEDS: 0.9% Normal Saline 1,000 ML 100 ML IV (16:32)
[2020-08-22] MEDS: Enoxaparin 40 MG/0.4 ML Syringe SC (16:32)
[2020-08-22 16:41] LABS: Magnesium 1.8 mg/dL (1.6-2.6)
[2020-08-22 17:50] LABS: Bedside Glucose 110 mg/dL (70-110)
[2020-08-22] MEDS: Lactulose 20 GM/30 ML UDC 10 GM PO (18:11)
[2020-08-22] MEDS: fentaNYL 100 MCG/2 ML Ampul 25 MCG IV (20:17)
[2020-08-22] MEDS: Pregabalin 75 MG Capsule 300 MG PO (21:35)
[2020-08-22] MEDS: Famotidine 20 MG Tablet PO (21:35)
--- NOTE | 2020-08-22 23:46 | NURSING ---
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 Belongings reviewed with Dia Shaffer
[2020-08-23] VITALS (12 sets, daily range): BP systolic 92–130; BP diastolic 61–85; PULSE 60–83; RESP 18–22; TEMP 36.3–36.8; O2SAT 92–96
[2020-08-23] MEDS: fentaNYL 100 MCG/2 ML Ampul 25 MCG IV ×3 (00:55→08:16)
[2020-08-23] MEDS: 0.9% Normal Saline 1,000 ML 100 ML IV (02:32)
[2020-08-23 05:22] LABS: Absolute Lymphocyte Count 1.33 X10^3/uL (0.83-4.51); Absolute Neutrophil Count 4.3 X10^3/uL (2.0-7.7); Basophil# 0.04 X10^3/uL; Basophil% 0.6 % (0-1); Eosinophil# 0.05 X10^3/uL; Eosinophils% 0.8 % (0-5); Hemoglobin 12.8 g/dL (12.0-15.0); Lymphocyte # 1.33 X10^3/ul (4.0); Lymphocyte % 21.1 % (19-41); Mean Corp Hgb Conc 32.8 g/dL (32-36); Mean Corpuscular Hgb 32.7 pg (27.0-32.0); Mean Corpuscular Volume 99.5 fL (81-99); Monocyte# 0.56 X10^3/uL; Monocyte% 8.9 % (0-10); NRBC Flagged by Analyzer 0 % (0-5); Neutrophil % 68.1 % (47-70); Platelet Count 166 K/mm3 (150-450); RBC Distribution Width SD 51.2 fl (35.1-43.9); Red Blood Count 3.92 M/mm3 (4.2-5.4); White Blood Count 6.3 K/mm3 (4.4-11.0)
[2020-08-23 05:49] LABS: ALB/GLOB Ratio 1.2 RATIO (0.9-2.4); AST(SGOT) 10 U/L (15-37); Alanine Aminotransfer ALT/SGPT 22 U/L (13-56); Albumin, Serum 3.5 g/dL (3.2-5.0); Alkaline Phosphatase 94 U/L (45-117); Anion Gap 6 (5-15); BUN 11 mg/dL (7-18); BUN/Creat Ratio 19.8 RATIO (10-20); Calcium,Total 8.4 mg/dL (8.5-10.1); Chloride 108 mmol/L (98-107); Creatinine, Serum 0.56 mg/dL (0.55-1.02); EST Glomerular Filtration Rate 120 mL/min (>60); Est Glom Filt Rate - Afr Amer 145 mL/min (>60); Estimated Creatinine Clearance 81.53 ml/min; Globulin 2.8 g/dL (2.2-4.2); Glucose 77 mg/dL (74-106); Potassium 3.6 mmol/L (3.5-5.1); Protein, Total 6.3 g/dL (6.4-8.2); Sodium Level 140 mmol/L (136-145)
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
[2020-08-23] MEDS: Famotidine 20 MG Tablet PO (08:10)
[2020-08-23] MEDS: Enoxaparin 40 MG/0.4 ML Syringe SC (08:10)
[2020-08-23] MEDS: Pregabalin 75 MG Capsule 300 MG PO (08:17)
--- NOTE | 2020-08-23 09:20 | NURSING ---
pt sighned self out AMA. Dr. Finn notified. pt states no one would give her ativan or klonopin, and they were not helping her. pt left ama, wheeled to exit with wheelchair to cab.
[2020-08-23 12:15] LABS: Vitamin B12 327 pg/mL (211-911)
--- NOTE | 2020-08-23 13:46 | PCM.DC.SUM ---
Discharge Date and Diagnosis - Problem List Patient Problems: Active and Suspected Problems (Last Reviewed 01/16/20 @ 13:[address] Laverne Aldana MD) Transient hypotension (Acute) Altered mental status (Acute) Date of Admission: 08/22/20 Date of Discharge: 08/23/20 - Primary Discharge Diagnosis Acute Problems: Active Problems (Last Reviewed 01/16/20 @ 13:[address] Laverne Aldana MD) Transient hypotension (Acute) Altered mental status (Acute) - Secondary Discharge Diagnosis Chronic Problems: Chronic Problems (Last Reviewed 01/16/20 @ 13:[address] Laverne Aldana MD) Polysubstance overdose (Chronic) PTSD (post-traumatic stress disorder) (Chronic) Anxiety and depression (Chronic) Constipation (Chronic) Hemorrhoids (Chronic) Hospital Course and Treatment Imaging Results: Diagnostic Data Brain CT 08/22/20 08:27 IMPRESSION: Normal unenhanced CT scan of the brain. Electronically Signed: Nacho Azul MD at 10:46 EDT , Service support , Chest X-Ray 08/22/20 16:15 IMPRESSION: Left lower lobe subsegmental atelectasis Electronically Signed: Apollo Kincaid MD at 23:28 EDT , Service support , critical care- Dr Keene Operations: None Procedures: None Summary of Care Provided: The patient is a 54 year old F with a past medical history as outlined which includes anxiety, PTSD and polysubstance abuse. She was admitted through the ED on 08/23/2020 after the EMS was contacted for medication overdose. Patient stated that she had taken tramadol, Tylenol and a number of clonidine tablets and wanted her stomach to be pumped. [place] was [place] and it showed that she had received number of different tramadol prescriptions recently along with pregabalin. Her history that she gave was quite inconsistent during admission, admitting note, she stated that she had taken 2 pills of Tylenol and 10 pills of Bentyl but then changed her story to her taking clonazepam, acetaminophen and dicyclomine, around 10 pills of each 2 to 3 days ago. Per history, during history taking, she continuously asked for more pain medication including tramadol, Lyrica and clonazepam. In the ED, she received charcoal and 1 L of normal saline. She was admitted to the ICU for drug overdose. Patient remained stable. She had a transient hypotension which resolved after she was given IV fluids. Per the acetaminophen nomogram, she did not meet criteria for treatment with N-acetylcysteine. Patient remained stable. She requested that her klonopin be resumed. Her urine tox was negative for klonopin, though she says she had just taken it a few days ago. Patient decided to sign out AGAINST MEDICAL ADVICE as medical team was not comfortable with resuming her Klonopin because her urine tox was negative for it even though she says she had just taken it 2 days prior and her [place]AR[place] screen did not show evidence of her getting Klonopin. Patient therefore signed out AGAINST MEDICAL ADVICE on 08/23/2020. Patient was seen and examined prior to her leaving AGAINST MEDICAL ADVICE. She kept on repeatedly asking me why she could not be given a prescription for her Klonopin. She told me that she gets the Klonopin from a counselor who was willing to write her more scripts. Told her we cannot give her a prescription for Klonopin as there was no evidence of it on the OARRS records and either with her urine tox positive for that. Patient was upset by this and insisted that she was therefore going to leave the hospital. o/e: Vital Signs Temp Pulse Resp BP Pulse Ox 97.3 F L 63 20 H 111/72 92 08/23/20 08:00 08/23/20 09:23 08/23/20 09:00 08/23/20 09:00 08/23/20 09:00 [] General: Alert, Cooperative, No apparent distress, very anxious HEENT: Atraumatic, Normocephalic Oral: No Gingival or Mucosal Lesions/ Ulcerations Neck: Supple, No Nodes, Trachea Midline Lungs: No rhonchi, No wheeze, No rales, Diminished Cardiovascular: Regular rate, Regular Rhythm Abdomen: Bowel Sounds Present, Soft, Non Tender Extremities: No clubbing, No cyanosis, No edema Skin: No breakdown Musculoskeletal: No Tenderness to Palpation of Joints or Extremities Lymphatic: No Cervical, Supraclavicular, or Inguinal Adenopathy Neurological: Cranial nerves II-XII grossly intact, Neuro grossly intact Psych/Mental Status: - -very anxious Patient left AGAINST MEDICAL ADVICE. Patient Problems: Active and Suspected Problems (Last Reviewed 01/16/20 @ 13:[address] Laverne Aldana MD) Transient hypotension (Acute) Altered mental status (Acute) - Physical Exam Vitals/I&O's: Vital Signs Temp Pulse Resp BP Pulse Ox 97.3 F L 63 20 H 111/72 92 08/23/20 08:00 08/23/20 09:23 08/23/20 09:00 08/23/20 09:00 08/23/20 09:00 Oxygen Flow Rate (L/min) 2 Oxygen Delivery Method Room Air Weight: 140 lb 14.006 oz Body Mass Index (BMI) 26.1 Intake and Output for Last 24 Hours 08/21/20 08/22/20 08/23/20 23:59 23:59 23:59 Intake Total 1999 1120 / 1120 Balance 1999 1120 / 1120 Microbiology Past 72 Hours 08/22/20 12:35 Mucosa - Nose SARS-CoV-2 Antigen (Rapid) - Final Laboratory Results 08/22/20 08:30: Magnesium 1.8 08/22/20 17:45: POC Glucose 110 08/23/20 05:15: Vitamin B12 327 08/23/20 05:15: Sodium 140, Potassium 3.6, Chloride 108 H, Carbon Dioxide 26.0, Anion Gap 6, BUN 11, Creatinine 0.56, Estim Creat Clear Calc 81.53, Est GFR (MDRD) Af Amer 145, Est GFR (MDRD) Non-Af 120, BUN/Creatinine Ratio 19.8, Glucose 77, Calcium 8.4 L, Phosphorus 3.0, Total Bilirubin 0.30, AST 10 L, ALT 22, Alkaline Phosphatase 94, Total Protein 6.3 L, Albumin 3.5, Globulin 2.8, Albumin/Globulin Ratio 1.2, Folate 17.30 08/23/20 05:15: WBC 6.3, RBC 3.92 L, Hgb 12.8, Hct 39.0, MCV 99.5 H, MCH 32.7 H, MCHC 32.8, RDW Std Deviation 51.2 H, RDW Coeff of [place] 14.0, Plt Count 166, MPV 12.0, Immature Gran % (Auto) 0.500, Neut % (Auto) 68.1, Lymph % (Auto) 21.1, [place] % (Auto) 8.9, Eos % (Auto) 0.8, Baso % (Auto) 0.6, Absolute Neuts (auto) 4.3, Absolute Lymphs (auto) 1.33, Nucleated RBC % 0 Discharge Diet: Low fat/ Low Cholesterol Home Medications: Medications to take at Discharge Pregabalin [Lyrica] 300 mg PO BID 05/16/16 clonazepam 0.5 mg disintegrating tablet 0.5 mg PO BID 11/15/17 dicyclomine 20 mg tablet 20 mg PO Q6H PRN 11/15/17 lactulose 10 gram/15 mL oral solution 10 g PO ONCE PRN 11/15/17 Albuterol Sulfate [Albuterol Sulfate HFA] 2 puff INHALATION Q4H PRN PRN 08/22/20 Fluticasone 0.05% [Flonase Nasal [place]] 1 spray NASAL DAILY 08/22/20 Methocarbamol 750 mg PO Q6H PRN PRN 08/22/20 traMADol [Ultram (G)] 50 mg PO DAILY PRN PRN 08/22/20 Primary Care Physician: Amanda Cyr MD [Primary Care Provider] - Disposition: Against Medical Advice Minutes spent on discharge:: 40 Patient Condition:: Stable Medical Necessity - Tobacco Use Smoking Status: Current every day smoker Tobacco Use: Cigarettes Meaningful Use Info Meaningful Use Diagnoses (Choose all that apply): None applicable Inpatient E&M: 93780 Disch Hosp
== END 2020-08-23 09:25 | disposition left against medical advice (07) ==
LOC: ED 13:49 → ICU 14:33
PROVIDERS: Admitting Provider Internal Medicine; Emergency Provider Emergency Medicine; PCP Internal Medicine; Visit Provider Student in an Organized Health Care Education/Training Program
DX: T40.421A Poisoning by tramadol, accidental (unintentional), initial encounter (principal); T39.1X1A Poisoning by 4-Aminophenol derivatives, accidental (unintentional), initial encounter; G92 Toxic encephalopathy; T46.5X1A Poisoning by other antihypertensive drugs, accidental (unintentional), initial encounter; I95.2 Hypotension due to drugs; M54.9 Dorsalgia, unspecified; F17.210 Nicotine dependence, cigarettes, uncomplicated; F43.12 Post-traumatic stress disorder, chronic; M41.9 Scoliosis, unspecified; G89.4 Chronic pain syndrome; R10.13 Epigastric pain; Z76.5 Malingerer [conscious simulation]; F32.9 Major depressive disorder, single episode, unspecified; Z79.899 Other long term (current) drug therapy; Z79.51 Long term (current) use of inhaled steroids
CPT/HCPCS: 70450; 71045; 74176; 80053; 80307; 80329; 81001; 82077; 82607; 82746; 82962; 83605; 83690; 83735; 84100; 84484; 85025; 85379; 85610; 87426; 93005; 96361; 96372; 96374; 96375; 96376; 99218; 99283; 99284; 99285; 99406; J7030; A4216; G0378; G0480; J2405

== ENCOUNTER 2020-08-23 12:17 | Emergency (ER) | payer MEDICAID, SELFPAY ==
[2020-08-22 15:47] VITALS: BMI 26.1
[2020-08-23 12:19] VITALS: BP 132/89; PULSE 89; RESP 20; TEMP 37.2; O2SAT 98; BMI 28.8
--- NOTE | 2020-08-23 13:10 | ED.RN ---
This RN at bedside with Dr Antoine. Pt requesting clonazepam and ativan and fentanyl. dr Antoine explains at length why we cannot give her those medications because of her overdose yesterday. Pt then asks to go back to ICU where she states she was getting those medications. We explain that is not how the process works since she signed out AMA a few hours ago. Pt got upset and started yelling stating so you're going to let me then, why wont any one treat my pain. Emotional support provided, Dr Antoine offers to call hospitalist to see if they would take her back upstairs. pt states i just want to leave if youre not going to treat my pain Pt got dressed herself, assisted into wheelchair by [employer] and patient called her own cab. Pt reminded she could stay in ED but we could not give her benzodiazepines or opiates. Pt assisted out of department at her request to wait for her cab.
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
== END 2020-08-23 13:17 | disposition home or self-care (01) ==
PROVIDERS: Emergency Provider Emergency Medicine; PCP Internal Medicine
DX: F19.10 Other psychoactive substance abuse, uncomplicated (principal)
CPT/HCPCS: 99284

== ENCOUNTER 2020-08-23 16:54 | Emergency (ER) | payer MEDICAID, SELFPAY ==
[2020-08-23 12:19] VITALS: BMI 28.8
[2020-08-23 16:56] VITALS: BP 158/90; PULSE 83; RESP 18; TEMP 36.7; O2SAT 95; BMI 28.4
--- NOTE | 2020-08-23 17:12 | EKG12_ITS ---
Test Reason : ABD PAIN Blood Pressure : / mmHG Vent. Rate : 077 BPM Atrial Rate : 077 BPM P-R Int : 150 ms QRS Dur : 096 ms QT Int : 368 ms P-R-T Axes : 044 023 029 degrees QTc Int : 416 ms Normal sinus rhythm Normal ECG Confirmed by MARIANELA RAMOS, LUDIVINA ([id number]), electronic news gathering editor KAVYA BO ([id number]) on 08/26/2020 1:49:17 PM Referred By: SARA Confirmed By:LUDIVINA BEAR MD
--- NOTE | 2020-08-23 17:13 | ED.DCSUM_ITS ---
- ER Visit Summary Date of Service: 08/23/20 Chief Complaint: [Chest and abdomen pain as well as back pain] History of Present Illness: The patient is a 54 F [presents to the emergency department with multiple complaints. Patient was admitted last evening for polysubstance abuse and altered mental status and spent the night in the ICU. This morning patient signed out AGAINST MEDICAL ADVICE when she was not given Klonopin. Patient return to the emergency department and saw the emergency room physician this morning stating that she wanted a prescription for Klonopin and eventually eloped prior to treatment completion. Patient's had 5 visits to the emergency department in the last 5 days apparently. Patient apparently has had multiple work-ups for her abdominal pain which have been unremarkable. Patient describes intermittent low-grade fevers up to 99. Patient describes intermittent sweats. She describes some dysuria. She believes that her pain is related to the surgery she had in February 2020 where she had rods and screws placed in her back. Patient has had pain in her back and chest and abdomen since February 2020. Patient with history of PTSD, anxiety, depression, and chronic back pain. Patient states that she saw pain management last month and they would not do back injections. She is scheduled to see another pain management physician this month.] Physical Examination: [HEENT-PERRLA, EOMI. Cranial nerves II through XII grossly intact. TMs clear. Mucous membranes moist. No adenopathy. Cardiovascular-regular rate and rhythm without murmur or ectopy Lungs-clear to auscultation, chest wall stable without crepitus or subcu emphysema Abdomen-normoactive bowel sounds, soft. Patient has diffuse tenderness palpation. There is no rebound, rigidity, or peritoneal signs. Extremities-intact ?4, normal range of motion, normal pulses, atraumatic] Test Results: [EKG obtained on arrival shows sinus rhythm with a ventricular rate of 77 bpm with no acute ST segment changes. CBC with differential was normal. Chemistries normal. LFTs normal. Lipase normal. Urinalysis normal. Troponin was less than 0.015. D-dimer was normal at 0.48. Chest x-ray 1 view obtained interpreted by myself as no acute disease process. Radiology read x- ray as subsegmental atelectasis otherwise nothing acute. CT scan of the abdomen pelvis without contrast showed essentially nothing acute.] Emergency Department Course and Treatment: [Line established on arrival. Patient was medicated with Toradol 15 mg IV. I did express to her that I could not treat her with narcotics given that she does not have any verifiable pain and this is chronic pain that she has had since February and given her recent overdose on multiple medications. Patient does state that the overdose on medications was accidental and she was not attempting to harm her self. Patient did not wait for her CT results to return and eloped the department before I could speak with her.] Treatment Plan: [Patient left prior to treatment completion] Disposition: [Patient left prior to treatment completion] Impression: [Chest pain-etiology uncertain Abdominal pain-etiology uncertain] This note was generated with [employer] dictation software. It may contain incorrect words, spelling, and punctuation that were not noted in review of the chart prior to signing ED Disposition - Plan for ED Patient: Disposition: Against Medical Advice Referrals: Amanda Cyr MD [Primary Care Provider] -
--- NOTE | 2020-08-23 17:29 | ED.RN ---
Patient complaining that she can't get anything more than toradol in ED for pain, patient then states I just want admitted because they give me ativan and fentanyl up there.
--- NOTE | 2020-08-23 17:30 | RAD_ITS ---
STUDY: X-RAY CHEST REASON FOR EXAM: Female, 54 years old. chest pain TECHNIQUE: Single AP portable view of the chest. COMPARISON: None. FINDINGS: No pleural effusion. Subsegmental atelectasis bilaterally. Normal size heart. Normal mediastinum and charla. Normal visualized pulmonary arteries. Normal visualized aortic arch and descending thoracic aorta. Thoracic rods in place. There is no demonstrated abnormality of the visualized soft tissue structures of the upper abdomen. RAD/Chest 1 View (Portable) IMPRESSION: Subsegmental atelectasis, otherwise negative x-ray examination of the chest. Electronically Signed: Jo Ann Johnson MD at 18:19 EDT Tel , Service support ,
[2020-08-23] MEDS: 0.9% Normal Saline 1,000 ML 150 ML IV (17:33)
[2020-08-23 17:38] LABS: Absolute Lymphocyte Count 1.08 X10^3/uL (0.83-4.51); Basophil# 0.03 X10^3/uL; Basophil% 0.4 % (0-1); Eosinophil# 0.04 X10^3/uL; Eosinophils% 0.5 % (0-5); Hematocrit 39.9 % (37-47); Hemoglobin 13.5 g/dL (12.0-15.0); Lymphocyte # 1.08 X10^3/ul (4.0); Lymphocyte % 14.1 % (19-41); Mean Corp Hgb Conc 33.8 g/dL (32-36); Mean Corpuscular Hgb 32.8 pg (27.0-32.0); Mean Corpuscular Volume 97.1 fL (81-99); Mean Platelet Vol. 12.2 fl (6.2-12.0); Monocyte# 0.48 X10^3/uL; Monocyte% 6.3 % (0-10); NRBC Flagged by Analyzer 0 % (0-5); Neutrophil % 78.3 % (47-70); Platelet Count 184 K/mm3 (150-450); RBC Distribution Width CV 13.8 % (11.6-14.6); RBC Distribution Width SD 49.3 fl (35.1-43.9); Red Blood Count 4.11 M/mm3 (4.2-5.4); White Blood Count 7.7 K/mm3 (4.4-11.0)
[2020-08-23 17:50] LABS: ALB/GLOB Ratio 1.3 RATIO (0.9-2.4); AST(SGOT) 11 U/L (15-37); Alanine Aminotransfer ALT/SGPT 22 U/L (13-56); Albumin, Serum 3.8 g/dL (3.2-5.0); Alkaline Phosphatase 96 U/L (45-117); Anion Gap 9 (5-15); BUN 18 mg/dL (7-18); BUN/Creat Ratio 26.3 RATIO (10-20); Calcium,Total 8.5 mg/dL (8.5-10.1); Chloride 106 mmol/L (98-107); Creatinine, Serum 0.68 mg/dL (0.55-1.02); EST Glomerular Filtration Rate 95 mL/min (>60); Est Glom Filt Rate - Afr Amer 114 mL/min (>60); Estimated Creatinine Clearance 67.14 ml/min; Globulin 2.9 g/dL (2.2-4.2); Glucose 99 mg/dL (74-106); Lipase 83 U/L (73-393); Potassium 3.5 mmol/L (3.5-5.1); Protein, Total 6.7 g/dL (6.4-8.2); Sodium Level 141 mmol/L (136-145)
[2020-08-23] MEDS: Ketorolac 15 MG/ML Vial IV (17:52)
--- NOTE | 2020-08-23 17:53 | CT_ITS ---
STUDY: CT ABDOMEN AND PELVIS WITHOUT CONTRAST REASON FOR EXAM: Female, 54 years old. abdominal pain RADIATION DOSAGE (If Supplied By Facility): CTDIvol = ( 17.20 ) mGy, DLP = ( 732.43 ) mGycm TECHNIQUE: Transaxial images were obtained from the dome of the diaphragm to the symphysis pubis without oral contrast, and without intravenous contrast. Sagittal and coronal images were reconstructed. Individualized dose optimization techniques were used for this CT. COMPARISON: 10/24/2017. FINDINGS: Mild fibroatelectatic changes in the lung bases. Heart size is normal. 8 mm low-attenuation lesion in the posterior segment of the liver, too small to characterize. The liver is otherwise unremarkable. The gallbladder is unremarkable. The spleen and pancreas are unremarkable. The adrenal glands are normal. The kidneys are unremarkable. No stones or hydronephrosis. The aorta is normal in caliber. There is no free fluid, free air or organized collection. No bowel obstruction or inflammatory change. Moderate stool burden. Normal appendix. Urinary bladder is unremarkable. Normal abdominal wall. No acute osseous abnormality. Spinal rods are present. Prior fixation of the sacroiliac joints. Chronic superior and inferior pubic bone fractures. CT/Abdomen/Pelvis without Cont IMPRESSION: 1. No acute findings. 2. Hepatic hypodensity, too small to characterize. 3. Remote pelvic fractures. Electronically Signed: Jo Ann Johnson MD at 19:27 EDT Tel , Service support ,
[2020-08-23 17:56] LABS: D-Dimer Quantitative (DVT/PE) 0.48 FEU/ug/m (0.27-0.49)
[2020-08-23 18:02] LABS: Lactic Acid 0.7 mmol/L (0.4-1.9)
[2020-08-23 18:19] LABS: Bacteria 0 SEEN /hpf (None Seen); Mucous, Urine 0 SEEN /hpf (<or=2+)
[2020-08-23 18:22] LABS: Color, Urine Yellow (Yellow); Glucose, Dipstick Normal (Normal); Ketone-Dipstick Negative (Negative); Leukocyte Esterase-Dipstick 25 /ul (Negative); Nitrite-Dipstick Negative (Negative); Occult Blood-Urine Negative /ul (Negative); Protein-Dipstick Negative (Negative); Specific Gravity, Urine 1.015 (1.002-1.030); Urine Bilirubin Dipstick Negative (Negative); Urine Clarity Clear (Clear); Urine Urobilinogen Normal (Normal)
[2020-08-23 18:28] LABS: Red Blood Cells-Urine 0 SEEN /hpf (0-5); Squamous Epithelial Cells - UA 0-5 SEEN /hpf (5-10); White Blood Cells 0-5 SEEN /hpf (0-5)
--- NOTE | 2020-08-23 18:58 | ED.RN ---
patient called out asking how long until she can have more pain medication. This RN explained to her that Dr Waldron is aware of her pain and wants to wait for CT results which will take approx another half hour to receive. Pt upset and state she cant wait shes in too much pain. pt on the phone with daughter at this time and daughter tells her she should stay and wait for her results.
--- NOTE | 2020-08-23 19:16 | ED.RN ---
patient calls out, upon assessment by this RN patient had pulled out her IV. blood was all over the bed and floor, patient is yelling someone needs to clean this up, i want to leave This RN explains she should wait for her results. She states just call me with them Charge nurse Darek at bedside at this time explains we cannot call her with her results and that she could follow up with medical records. PT starts yelling thats ridiculous you just want me to Emotional support provided. Explained to patient she would need to sign out AMA again if she wanted to leave. Risks explained to patient, she agrees and signs the paperwork. Pt states she is unable to walk and demands a wheelchair at this time. This RN gets pt wheelchair and finds patient walking with her walker out of her room. Pt starts yelling no one will help me here Pt assisted into wheelchair, pt demands to sit outside in wheelchair to wait for taxi that she called for herself.
[2020-08-23 19:31] VITALS: BP 134/84; PULSE 81; RESP 15; O2SAT 96
== END 2020-08-23 19:33 | disposition left against medical advice (07) ==
PROVIDERS: Emergency Provider Emergency Medicine; PCP Internal Medicine
DX: R07.9 Chest pain, unspecified (principal); R10.84 Generalized abdominal pain; Z72.0 Tobacco use
CPT/HCPCS: 71045; 74176; 80053; 81001; 83605; 83690; 84484; 85025; 85379; 93005; 96361; 96374; 99285; J7030; A4216

== ENCOUNTER 2020-08-23 23:26 | Emergency (ER) | payer MEDICAID, SELFPAY ==
[2020-08-23 16:56] VITALS: BMI 28.4
[2020-08-23 23:27] VITALS: BP 137/86; PULSE 89; RESP 16; TEMP 36.9; O2SAT 93; BMI 28.3
--- NOTE | 2020-08-24 00:03 | ED.RN ---
PT FOUND AMBULATING OUT OF ROOM, GOING INTO ANOTHER PT'S ROOM TO FIND A DR. REDIRECTED PT BACK TO ROOM, ADVISED PT THAT SHE IS NOT ALLOWED TO GO INTO OTHER PT ROOMS, AND REORIENTED TO CALL LIGHT. PT CRYING AND STATES WHAT ARE YOU JUST GONNA LET ME HERE? ENCOURAGED THAT DR IS BUSY AND THAT HE WAS HEADING TO HER ROOM NEXT. EMOTIONAL SUPPORT PROVIDED.
--- NOTE | 2020-08-24 00:18 | ED.RN ---
patient called nurse to the room and stated she was leaving it was taking to long to be seen by the doctor. patient made aware nursing staff can not give medications until she is seen by the doctor. Patient has been seen walking through the [place] looking for the doctor. Patient no longer wants to wait. Patient up walking under on free will. Patient walked out the door with no assistance with her walker.
--- NOTE | 2020-08-24 00:39 | ED.VIS.GI ---
History of Present Illness Chief Complaint: Abd Pain Informant: Patient - Abdominal Pain/Flank Pain Onset: Month(s) - 6 Timing: Continuous Quality: Aching Location: Diffuse Current Severity: Severe Maximum Severity: Severe Worsened by: Nothing Relieved by: Nothing - Nausea/Vomiting/Emesis GI Symptom: Negative for: Vomiting - Diarrhea/Melena/Hematochezia GI Symptom: Diarrhea Associated Symptoms: Negative for: Dysuria, Hematuria Narrative: Patient presenting with diffuse abdominal and back pain, she was seen here earlier for the same thing, she was admitted yesterday to the ICU for a polysubstance overdose that may have included clonidine and she became hypotensive in the emergency department. She left AGAINST MEDICAL ADVICE. She has been back to the emergency department several times since then. She says to me that her abdomen hurts so bad that she feels like she is going to . She had a CT scan of her abdomen/pelvis several hours ago that was normal. She does not want me to leave the room because she is afraid she is going to . She confirms that this pain in her abdomen and her back in addition to the pain that radiates into both thighs and sometimes tingling into both feet, that all of the symptoms have been there since February when she last had her back surgery. She states everything has been progressively getting worse. She states she has to push to get urine out and stool but she is able to do so and denies any incontinence or saddle anesthesia. She feels like she needs her Klonopin. - Past Medical History (1) Chronic low back pain Status: Chronic (2) PTSD (post-traumatic stress disorder) Status: Chronic (3) Anxiety and depression Status: Chronic Past Medical History - Allergies and Home Meds Allergies/Adverse Reactions: Allergies buspirone [From BuSpar] Allergy (Verified 08/23/20 23:29) Hives escitalopram [From Lexapro] Adverse Reaction (Verified 08/23/20 23:29) Rash gabapentin Adverse Reaction (Verified 08/23/20 23:29) Nausea/Vom/Diarrhea ANTIDEPRESSANT-UNKNOWN NAME Allergy (Uncoded 08/23/20 23:29) Other PT UNABLE TO TOLERATE Primary Care Physician: Amanda Cyr MD [Primary Care Provider] - Surgical History: - - Multiple back surgeries Smoking Status: Current every day smoker - Family History Paternal Family History: Family History (Last Reviewed 08/22/20 @ 14:[address] Chavez Guerrier MD) Brother Cancer Family History: Reports: - - Denies history of schizophrenia or mental health issues in first-degree family relative. Review of Systems General: Reports: Malaise. Denies: Chills, Fever, Sweats Eyes: Denies: Visual changes - bilaterally, Diplopia ENT: Denies: Rhinorrhea, Sore throat Cardiovascular: Denies: Chest pain, Palpitations Respiratory: Denies: Dyspnea, Cough, Dyspnea on exertion Gastrointestinal: Reports: Abdominal pain, Diarrhea. Denies: Nausea, Vomiting, Melena, Hematochezia Genitourinary: Reports: - - No bowel or bladder incontinence. Denies: Dysuria, Hematuria, Frequency Musculoskeletal: Reports: Back pain, Extremity Pain - BLE. Denies: Swelling Skin: Denies: Rash, Wounds Neurological: Reports: Numbness - Both thighs. No saddle anesthesia.. Denies: Headache, Weakness Psych: Reports: Anxiety. Denies: Suicidal thoughts Physical Exam Vital Signs/Narrative: Vital Signs Temp Pulse Resp BP Pulse Ox 08/23/20 23:27 98.5 F 89 16 137/86 H 93 Inital Vital Signs reviewed: Yes General: Well nourished, Well developed, No Acute Distress Head: Normocephalic, Atraumatic Eyes: Perrl, EOMI ENT: Moist mucous membranes, No rhinorrhea Neck: Supple, Nontender Cardiovascular: Regular rate, Regular rhythm, No murmurs. Negative for: Tachycardia Respiratory: No distress, CTA bilaterally, Chest nontender Abdomen: Soft, Nondistended, Normal bowel sounds, No masses, Tender - Diffusely . Negative for: Guarding, Rebound tenderness Back: Normal Inspection, - - kyphotic. Negative for: CVA tenderness Extremities: Nontender, No edema Skin: Normal color, No rash, No Trauma Neurological: Alert, Oriented x3, Cranial nerves II-XII grossly intact, Normal Strength, Normal Sensation, Normal Gait Psychological: - - anxious Diagnostic/Tx/Re-eval - Medical Decision Making I advised the patient that if she was having severe abdominal pain like this, with a normal CT, it could be intestinal pain, but not likely benzodiazepine withdrawal which does not typically cause this, and it does typically cause a tachycardia which she does not have. If she is opiate-dependent, that could cause abdominal pain in withdrawal but usually tachycardia and blown pupils which she does not have. I offered her medications including a dose of Ativan which I ordered, but soon after seeing the patient she eloped. I think it is very unlikely that she has cauda equina syndrome or any type of acute spinal neurosurgical problem at this time especially since she is walking without any leg weakness, however I did not have the opportunity to discuss any of this with her or perform a rectal exam or a postvoid residual, which I had discussed with the nurse was planned. Disposition: Elopement ED Disposition - Plan for ED Patient: Diagnosis: Diffuse abdominal pain, Chronic low back pain, Acute anxiety
--- NOTE | 2020-08-24 17:15 | CM.ED ---
SOCIAL WORK Referral Source: Dr. Burrows Reason for Referral: Discharge Planning/Referral for ED Care Plan Met with patient in room. Introduced role and reason for referral. Patient sitting in bed with stack of papers from hospital. Patient attempting to show this worker my reason for meds. Discussed multiple visits to ER. Patient denies any history of substance abuse. Patient states follows with [facility]. Inquired about recent visit for accidental overdose. Patient denies any suicidal or homicidal ideation. Patient states, I'm in pain and no one will help. Patient began pulling out IV and stating, I'm leaving. Nurse and Dr. Burrows updated. Plan: ED Care Plan Travis Stover MSW, EDI ANALYST
== END 2020-08-24 00:23 ==
LOC: ED 08-24 00:01
PROVIDERS: Emergency Provider Emergency Medicine; PCP Internal Medicine
DX: R10.84 Generalized abdominal pain (principal); M54.5 Low back pain; G89.29 Other chronic pain; F41.9 Anxiety disorder, unspecified; R07.9 Chest pain, unspecified; F19.10 Other psychoactive substance abuse, uncomplicated; F17.200 Nicotine dependence, unspecified, uncomplicated
CPT/HCPCS: 71045; 74176; 80053; 81001; 82607; 82746; 83605; 83690; 84100; 84484; 85025; 85379; 93005; 96361; 96372; 96374; 96376; 99283; 99284; 99285; J7030; A4216

== ENCOUNTER 2020-08-24 16:27 | Emergency (ER) | payer MEDICAID, SELFPAY ==
[2020-08-23 23:27] VITALS: BMI 28.3
[2020-08-24 16:28] VITALS: BP 119/92; PULSE 105; RESP 19; TEMP 36.6; O2SAT 97; BMI 26.8
[2020-08-24 16:33] VITALS: BP 151/87; PULSE 103; RESP 20; O2SAT 96
--- NOTE | 2020-08-24 16:33 | EKG12_ITS ---
Test Reason : Blood Pressure : / mmHG Vent. Rate : 092 BPM Atrial Rate : 092 BPM P-R Int : 138 ms QRS Dur : 086 ms QT Int : 364 ms P-R-T Axes : 039 019 034 degrees QTc Int : 450 ms Normal sinus rhythm Nonspecific ST abnormality Abnormal ECG Confirmed by MARIANELA RAMOS, LUDIVINA ([id number]), production editor KAVYA BO ([id number]) on 08/27/2020 10:58:19 AM Referred By: LISA Confirmed By:LUDIVINA BEAR MD
[2020-08-24] MEDS: Aspirin 81 MG TAB.CHEW 324 MG PO (16:40)
[2020-08-24 16:48] LABS: Absolute Lymphocyte Count 0.82 X10^3/uL (0.83-4.51); Absolute Neutrophil Count 4.8 X10^3/uL (2.0-7.7); Basophil# 0.02 X10^3/uL; Basophil% 0.3 % (0-1); Hematocrit 41.8 % (37-47); Hemoglobin 14.4 g/dL (12.0-15.0); Lymphocyte # 0.82 X10^3/ul (4.0); Lymphocyte % 13.4 % (19-41); Mean Corp Hgb Conc 34.4 g/dL (32-36); Mean Corpuscular Hgb 33.5 pg (27.0-32.0); Mean Corpuscular Volume 97.2 fL (81-99); Mean Platelet Vol. 11.9 fl (6.2-12.0); Monocyte# 0.48 X10^3/uL; Monocyte% 7.8 % (0-10); NRBC Flagged by Analyzer 0 % (0-5); Neutrophil # 4.79 X10^3/uL (2.7-7.7); Platelet Count 203 K/mm3 (150-450); RBC Distribution Width CV 13.7 % (11.6-14.6); White Blood Count 6.1 K/mm3 (4.4-11.0)
--- NOTE | 2020-08-24 16:52 | RAD_ITS ---
STUDY: X-RAY CHEST REASON FOR EXAM: Female, 54 years old. chest pain TECHNIQUE: Single AP portable view of the chest. COMPARISON: 5:29 PM. FINDINGS: No pleural effusion. Mild subsegmental atelectasis in the right lower lobe. The lungs are otherwise clear. Normal size heart. Normal mediastinum and charla. Normal visualized pulmonary arteries. Normal visualized aortic arch and descending thoracic aorta. Spinal rods in place. Soft tissues and bony structures are otherwise unremarkable. RAD/Chest 1 View (Portable) IMPRESSION: Subsegmental atelectasis in the right lung, otherwise no acute findings. Electronically Signed: Jo Ann Johnson MD at 18:09 EDT Tel , Service support ,
[2020-08-24 17:05] LABS: Anion Gap 9 (5-15); BUN 11 mg/dL (7-18); BUN/Creat Ratio 17.1 RATIO (10-20); Calcium,Total 9.6 mg/dL (8.5-10.1); Chloride 106 mmol/L (98-107); Creatinine, Serum 0.64 mg/dL (0.55-1.02); EST Glomerular Filtration Rate 102 mL/min (>60); Est Glom Filt Rate - Afr Amer 123 mL/min (>60); Estimated Creatinine Clearance 71.34 ml/min; Glucose 142 mg/dL (74-106); Potassium 3.1 mmol/L (3.5-5.1); Sodium Level 139 mmol/L (136-145)
[2020-08-24 17:10] LABS: Lipase 74 U/L (73-393)
[2020-08-24 17:12] LABS: AST(SGOT) 12 U/L (15-37); Alanine Aminotransfer ALT/SGPT 24 U/L (13-56); Albumin, Serum 4.2 g/dL (3.2-5.0); Alkaline Phosphatase 100 U/L (45-117); Globulin 3.2 g/dL (2.2-4.2); Protein, Total 7.4 g/dL (6.4-8.2)
--- NOTE | 2020-08-24 17:19 | ED.VISSUMM ---
- ER Visit Summary Date of Service: 08/24/20 Chief Complaint: Chest and abdominal pain History of Present Illness: The patient is a [address] Cyr. She reports that she has had chest and upper abdominal pain has been constant for the past 10 days. The sharp pain is 10 of 10 severity. Nothing makes this better or worse. She is been nauseated, but has not vomited. She reports has had diarrhea over the same timeframe. No blood in her stools or black tarry stools. Patient denies suicidal or homicidal ideation. No auditory visual hallucinations. Physical Examination: Vitals: Stable. Afebrile. General: Well-nourished and well-developed. Head: Normocephalic atraumatic. Neck: Supple, no lymphadenopathy. No JVD. Nontender. Cardiovascular: Regular rate and rhythm. No murmurs. Respiratory: No respiratory distress. Clear to auscultation bilaterally. Abdominal: Soft, mild epigastric tenderness to palpation, nondistended, normal bowel sounds. No guarding, rebound, or peritoneal signs. Back: Nontender. Extremities: Nontender, no edema. Skin: Normal color, no rash. Neurologic: Alert and oriented ?3. Cranial nerves II through XII are intact. Normal strength and sensation. Psych: Normal affect. Test Results: EKG is sinus at [address] changes. Is unchanged from May of this year. Troponin is negative despite 10 days of constant pain. LFTs show an AST of 12. Lipase is 74. Chem-7 shows a potassium of 3.1 and glucose 142. CBC shows segmented neutrophils 78 and lymphocytes of 13. Tylenol level is less than 2. Chest x-ray shows Kahn rods, but no acute disease. Emergency Department Course and Treatment: Patient's chart was reviewed. Patient was actually admitted to the ICU 2 days ago for a accidental overdose and reports that she needs refills of her tramadol and Klonopin. I had a prolonged discussion with her that that is not appropriate in the emergency department. That if she accidentally overdosed it makes me even more concerned about giving her refills on those medications. Patient became angry and took out her IV. She left the emergency department prior to receiving the remainder of her labs. She was discussed with case management for possibility of a care plan. Treatment Plan: Left prior to completion of treatment. Disposition: Left prior to completion of treatment. Impression: 1. Atypical chest pain. 2. Abdominal pain, uncertain cause. 3. Opiate seeking behavior. 4. Hypokalemia. 5. Left prior to completion of treatment. This note was generated with [employer] dictation software. It may contain incorrect words, spelling, and punctuation that were not noted in review of the chart prior to signing ED Disposition - Plan for ED Patient: Disposition: Home or Assisted Living Referrals: Amanda Cyr MD [Primary Care Provider] -
--- NOTE | 2020-08-24 17:20 | ED.RN ---
Pt was trying to rip iv out with social work supervisor in the room. pt called cab while registration was in the room. Pt decided that she wanted to leave and this nurse took her IV out and pt walked with her walker to the cab. Dr Burrows aware. Pt was asked if she wanted to wait on her lab results. She said she just wanted to go.
[2020-08-24 17:55] LABS: Acetaminophen (Tylenol) Level < 2.0 ug/mL (10.0-30.0)
== END 2020-08-24 17:24 | disposition home or self-care (01) ==
LOC: ED 17:15
PROVIDERS: Emergency Provider Emergency Medicine; PCP Internal Medicine
DX: R07.89 Other chest pain (principal); E87.6 Hypokalemia; R10.13 Epigastric pain; Z76.5 Malingerer [conscious simulation]; Z72.0 Tobacco use
CPT/HCPCS: 71045; 80048; 80076; 80329; 83690; 84484; 85025; 93005; 99285; A4216; G0480

== ENCOUNTER 2020-08-25 16:24 | Emergency (ER) | payer MEDICAID, SELFPAY ==
[2020-08-24 16:28] VITALS: BMI 26.8
[2020-08-25 16:26] VITALS: BP 146/90; PULSE 93; RESP 17; TEMP 36.9; O2SAT 99; BMI 25.1
--- NOTE | 2020-08-25 16:34 | EKG12_ITS ---
Test Reason : Blood Pressure : / mmHG Vent. Rate : 089 BPM Atrial Rate : 089 BPM P-R Int : 148 ms QRS Dur : 094 ms QT Int : 372 ms P-R-T Axes : 052 024 031 degrees QTc Int : 452 ms Normal sinus rhythm Normal ECG Confirmed by SAMUEL RAMOS, ERIC ([id number]), video tape editor KAVYA BO ([id number]) on 08/29/2020 9:23:08 AM Referred By: JOSE Confirmed By:ERIC BAKER MD
--- NOTE | 2020-08-25 16:35 | ED.VISSUMM ---
- ER Visit Summary Date of Service: 08/25/20 Chief Complaint: Withdrawal History of Present Illness: The patient is a [address] Cyr. She was admitted to the ICU 3 days ago for a accidental overdose of Klonopin and tramadol. She states that she feels as though she is going through withdrawal from these. States that she feels lightheaded and weak. On review of systems patient complains that she has had constant chest pain for the past 11 days. She also complains of constant abdominal pain for the past 11 days. States that she has had chills, but denies fever. She denies cough. She reports has had nausea without vomiting. She had a lot of diarrhea. She also complains of generalized weakness. Physical Examination: Vitals: Stable. Afebrile. General: Well-nourished and well-developed. Head: Normocephalic atraumatic. Neck: Supple, no lymphadenopathy. No JVD. Nontender. Cardiovascular: Regular rate and rhythm. No murmurs. Respiratory: No respiratory distress. Clear to auscultation bilaterally. Abdominal: Soft, nontender, nondistended, normal bowel sounds. No guarding, rebound, or peritoneal signs. Back: Nontender. Extremities: Nontender, no edema. Skin: Normal color, no rash. Neurologic: Alert and oriented ?3. Cranial nerves II through XII are intact. Normal strength and sensation. Mental status exam: Patient appears their stated age. Good posture and grooming. Good eye contact. Normal rate, volume, and latency of speech. No suicidal or homicidal ideation. No auditory or visual hallucinations. Flow of thought is tangential. Insight and judgment is poor. Test Results: EKG is sinus at 89 unchanged from May of this year. Chest x-ray shows a poor inspiration and no acute disease. Emergency Department Course and Treatment: An [facility] report was obtained which shows patient has had prescriptions for [address] Cyr on August 21, August 14, and August 07. I do not think that she is in opiate withdrawal from this. She has been taking 0.5 mg of Klonopin twice a day as prescribed by Dr. Kumar. She has now been out of this from her overdose for 3 days. She is not tachycardic or hypertensive. I do not think that she is in withdrawal from this. This is the patient's fifth visit to the emergency department in the past 3 days. Yesterday I spoke with case management about her and they went in to talk with her shortly after arrival. When I walked in she was pulling out her IV and refused to speak with them. Today I spoke with the counseling center about her. She does not have suicidal or homicidal ideation, auditory or visual hallucinations that would require psychiatric hospitalization. The patient left prior to be seen by the counseling center despite the fact that they were here in the emergency department. While she was here I did have a prolonged discussion with her that I am not going to give her prescriptions to medications that she overdosed on accidentally 4 days ago. Patient refused an IV and blood work. Treatment Plan: Left prior to completion of treatment. Disposition: Left prior to completion of treatment. Impression: 1. Atypical chest pain. 2. Opiate seeking behavior. 3. Left prior to completion of treatment. This note was generated with [employer] dictation software. It may contain incorrect words, spelling, and punctuation that were not noted in review of the chart prior to signing ED Disposition - Plan for ED Patient: Disposition: Against Medical Advice Referrals: Amanda Cyr MD [Primary Care Provider] -
[2020-08-25 16:43] VITALS: O2SAT 99
--- NOTE | 2020-08-25 17:05 | RAD_ITS ---
STUDY: X-RAY CHEST REASON FOR EXAM: Female, 54 years old. Chest pain TECHNIQUE: 1 view COMPARISON: 08/24/2020. FINDINGS: Cardiomediastinal silhouette is unremarkable. Costophrenic angles are sharp. Lungs are clear. The trachea is midline. There is no pneumothorax. Fusion hardware is noted in the thoracolumbar spine. RAD/Chest 1 View (Portable) IMPRESSION: No acute cardiopulmonary process. Electronically Signed: Shlomo Field MD at 18:12 EDT Tel , Service support ,
--- NOTE | 2020-08-25 17:15 | ED.RN ---
Pt is leaving AMA. pt stated that she doesnt want to waste our time. PT refused blood work and IV. Pt was advised that when she goes to see Dr Cyr that she needs to talk to her about getting off of her meds. Pt was advised that she feels the way that she does because she is taking too much of her meds and is running out so when she runs out she is withdrawing from them because she is addicted to them. I advised pt that if she could get off the meds her other symptoms would be better. pt stgated that she understood and walked out with her walker. Dr Burrows aware. Pt was also advised that the EMS chief was going to go to their directors and find out what they can do due to pt being here by EMs x 9 times in a few days
== END 2020-08-25 17:27 | disposition left against medical advice (07) ==
LOC: ED 16:55
PROVIDERS: Emergency Provider Emergency Medicine; PCP Internal Medicine
DX: R07.89 Other chest pain (principal); Z76.5 Malingerer [conscious simulation]
CPT/HCPCS: 71045; 93005; A4216

== ENCOUNTER 2020-08-25 23:05 | Emergency (ER) | payer MEDICAID, SELFPAY ==
[2020-08-25 16:26] VITALS: BMI 25.1
[2020-08-25 23:06] VITALS: BP 148/92; PULSE 90; RESP 18; TEMP 36.9; O2SAT 98; BMI 27.3
[2020-08-25 23:16] VITALS: BP 133/87; PULSE 83; RESP 19; O2SAT 98
--- NOTE | 2020-08-25 23:22 | ED.DCSUM_ITS ---
- ER Visit Summary Date of Service: 08/25/20 Chief Complaint: Withdrawal History of Present Illness: The patient is a [address] Cyr. She has not had her tramadol or Klonopin since overdosing 4 days ago. She has been seen in the emergency department multiple times for this complaint in the past 2 days. Each time she walks out before the work-up is completed. Patient reports that she has chest and abdominal pain that began 11 days ago. Its a constant pain is 10 of 10 in severity. She reports that she is short of breath as well. She denies fever. She does complain of chills. She denies sore throat. Patient reports has been nauseated, but has not vomited. She is had diarrhea twice a day for the past 2 weeks. She denies any blood in her stools. She does complain of generalized weakness. She denies any suicidal or homicidal ideation. No auditory visual hallucinations. Physical Examination: Vitals: Stable. Afebrile. General: Well-nourished and well-developed. Head: Normocephalic atraumatic. Neck: Supple, no lymphadenopathy. No JVD. Nontender. Cardiovascular: Regular rate and rhythm. No murmurs. Respiratory: No respiratory distress. Clear to auscultation bilaterally. Abdominal: Soft, nontender, nondistended, normal bowel sounds. No guarding, rebound, or peritoneal signs. Back: Nontender. Extremities: Nontender, no edema. Skin: Normal color, no rash. Neurologic: Alert and oriented ?3. Cranial nerves II through XII are intact. Normal strength and sensation. Mental status exam: Patient appears their stated age. Good posture and grooming. Good eye contact. Normal rate, volume, and latency of speech. No suicidal or homicidal ideation. No auditory or visual hallucinations. Flow of thought is logical. Insight and judgment is fair. Test Results: Patient refused an EKG. CBC shows segmented neutrophils of 73 and lymphocytes of 18. BMP showed a potassium of 3.0 and glucose 128. LFTs show an AST of 11. Lipase is normal. Troponin is negative. Patient had a chest x-ray 4 hours ago that was negative. This was not repeated. Emergency Department Course and Treatment: I had a prolonged discussion the patient that her symptoms are not consistent with benzodiazepine withdrawal. An [facility] report was obtained which shows patient has had prescriptions for [address] Cyr on August 21, August 14, and August 07. I do not think that she is in opiate withdrawal from this. She has been taking 0.5 mg of Klonopin twice a day as prescribed by Dr. Kumar. She has now been out of this from her overdose for 3 days. She is not tachycardic or hypertensive. I do not think that she is in withdrawal from this. Yesterday I attempted to get case management involved. She walked out of the emergency department prior to them being able to see her. Kaycee I spoke with the counseling center and she walked out of the emergency department prior to them being able to see her either. The counseling center did state that they will speak with her therapist who has prescribed her the Klonopin and let him know what is going on. Treatment Plan: The patient clearly needs a care plan in the emergency department so that she gets consistent care. The patient walked out of the emergency department without difficulty prior to her labs returning. Disposition: Left prior to completion of treatment Impression: 1. Atypical chest pain. 2. Abdominal pain. 3. Hypokalemia. 4. Opiate seeking behavior. 5. Left prior to completion of treatment. This note was generated with [employer] dictation software. It may contain incorrect words, spelling, and punctuation that were not noted in review of the chart prior to signing ED Disposition - Plan for ED Patient: Instructions: ED Chest Pain, Uncertain Cause Referrals: Amanda Cyr MD [Primary Care Provider] - As soon as possible Additional Instructions: Follow-up with Dr. Kumar as soon as possible.
--- NOTE | 2020-08-25 23:34 | ED.RN ---
PT CALLS THIS RN INTO THE ROOM. PT STATES SHE WANTS HER IV OUT AND REFUSES AN EKG. THIS RN ATTEMPTED TO REASSURE HER THAT BLOODWORK WAS ALREADY PENDING AND GETTING AN EKG WAS FAST AND IN HER BEST INTEREST SINCE SHE PRESENTS WITH CHEST PAIN. PT STATES SHE DOESN'T CARE AND WANTS TO LEAVE THAT HER RIDE IS ALREADY ON ITS WAY UP. PT IV D/C'D AND PT WHEELED OUT BY STAFF IN A WHEELCHAIR
[2020-08-25 23:35] LABS: Absolute Neutrophil Count 5.3 X10^3/uL (2.0-7.7); Basophil# 0.03 X10^3/uL; Basophil% 0.4 % (0-1); Eosinophil# 0.02 X10^3/uL; Eosinophils% 0.3 % (0-5); Hematocrit 40.6 % (37-47); Hemoglobin 13.7 g/dL (12.0-15.0); Lymphocyte % 17.8 % (19-41); Mean Corp Hgb Conc 33.7 g/dL (32-36); Mean Corpuscular Hgb 32.5 pg (27.0-32.0); Mean Corpuscular Volume 96.2 fL (81-99); Mean Platelet Vol. 12.2 fl (6.2-12.0); Monocyte# 0.62 X10^3/uL; Monocyte% 8.5 % (0-10); NRBC Flagged by Analyzer 0 % (0-5); Neutrophil % 72.6 % (47-70); Platelet Count 218 K/mm3 (150-450); RBC Distribution Width SD 49.6 fl (35.1-43.9); Red Blood Count 4.22 M/mm3 (4.2-5.4); White Blood Count 7.3 K/mm3 (4.4-11.0)
[2020-08-25 23:49] LABS: ALB/GLOB Ratio 1.4 RATIO (0.9-2.4); AST(SGOT) 11 U/L (15-37); Alanine Aminotransfer ALT/SGPT 23 U/L (13-56); Albumin, Serum 4.2 g/dL (3.2-5.0); Alkaline Phosphatase 95 U/L (45-117); Anion Gap 10 (5-15); BUN 10 mg/dL (7-18); BUN/Creat Ratio 15.9 RATIO (10-20); Calcium,Total 8.9 mg/dL (8.5-10.1); Chloride 105 mmol/L (98-107); Creatinine, Serum 0.63 mg/dL (0.55-1.02); EST Glomerular Filtration Rate 105 mL/min (>60); Est Glom Filt Rate - Afr Amer 126 mL/min (>60); Estimated Creatinine Clearance 72.47 ml/min; Globulin 3.1 g/dL (2.2-4.2); Glucose 128 mg/dL (74-106); Lipase 86 U/L (73-393); Protein, Total 7.3 g/dL (6.4-8.2); Sodium Level 139 mmol/L (136-145)
[2020-08-25 23:55] VITALS: RESP 16
== END 2020-08-25 23:56 | disposition home or self-care (01) ==
PROVIDERS: Emergency Provider Emergency Medicine; PCP Internal Medicine
DX: R07.89 Other chest pain (principal); R10.9 Unspecified abdominal pain; E87.6 Hypokalemia; Z76.5 Malingerer [conscious simulation]; Z72.0 Tobacco use
CPT/HCPCS: 71045; 80053; 83690; 84484; 85025; 93005; 99284; A4216

== ENCOUNTER 2020-08-26 08:39 | Emergency (ER) | payer MEDICAID, SELFPAY ==
[2020-08-25 23:06] VITALS: BMI 27.3
[2020-08-26 08:40] VITALS: BP 137/71; PULSE 85; RESP 14; TEMP 36.8; O2SAT 96; BMI 27.3
--- NOTE | 2020-08-26 08:57 | ED.VISSUMM ---
- ER Visit Summary Date of Service: 08/26/20 Chief Complaint: Back pain History of Present Illness: The patient is a 54 F who presents with back pain that has been chronic. Patient states she has had multiple surgeries on her back and has chronic back pain. Patient states she took 10 extra strength Tylenol and for ibuprofen approximately 30 minutes prior to arrival. Patient describes her pain as aching and crushing. Patient admits to some radiation down both legs. Patient states the pain radiates into her abdomen as well. Patient admits to a fever but states it was 99. Patient denies any bowel or bladder changes. Patient denies any saddle anesthesia. Patient states nothing makes her pain better nothing makes it worse. This is the 10th emergency department visit in the last 7 days for various pain complaints. Patient was recently admitted for accidental overdose of Tylenol. Patient signed out AGAINST MEDICAL ADVICE during that visit. Physical Examination: Vital signs are stable. Patient is afebrile. Patient is in no acute distress. There is diffuse tenderness over the thoracic and lumbar paraspinal muscles. There is no bony crepitance or step-off. Range of motion was limited in all motions of the thoracic and lumbar spine secondary to pain. Strength is 5/5 bilateral in the upper and lower extremities. There are no sensory deficits noted. Deep tendon reflexes are 2/4 bilaterally in the lower extremities. Pedal pulses are equal bilaterally. Heart was regular rate and rhythm. Lungs are clear and equal bilaterally. Abdomen is soft. Bowel sounds are normal. There is no tenderness. Emergency Department Course and Treatment: Since the patient took 5 extra strength Tylenol tablets approximately 30 minutes prior to arrival. Patient was advised that she would need to wait in the emergency department 3-1/2 hours and have an acetaminophen level drawn at that time. Patient refused this. Patient will sign out AGAINST MEDICAL ADVICE. Patient was advised of the risks of Tylenol overdose. Patient understood and still signed out AGAINST MEDICAL ADVICE. Patient ambulated out of the emergency department with her walker. Disposition: Discharged AGAINST MEDICAL ADVICE Impression: 1. Chronic back pain 2. Allegedly acetaminophen overdose This note was generated with [employer] software. It may contain incorrect words, spelling, and punctuation that were not noted in review of the chart prior to signing ED Disposition - Plan for ED Patient: Disposition: Home or Assisted Living Diagnosis: Chronic back pain Referrals: Amanda Cyr MD [Primary Care Provider] - 3-5 Days
--- NOTE | 2020-09-05 15:11 | CM.ED ---
Social Work ED Care Plan reviewed and approved by Dr. Burrows ED Care Plan entered. Resource compiled and mailed to patient. Telephone call to patient to updated on ED Care Plan, no answer. Generic voicemail left requesting a return phone call. Amado PUGA, CHRISTENS
== END 2020-08-26 09:24 | disposition home or self-care (01) ==
LOC: ED 09:19
PROVIDERS: Emergency Provider Emergency Medicine; PCP Internal Medicine
DX: G89.29 Other chronic pain (principal); M54.9 Dorsalgia, unspecified; Z72.0 Tobacco use
CPT/HCPCS: 99284

== ENCOUNTER → 2022-02-20 | Outpatient (CLI) | payer MEDICAID, SELFPAY | END | disposition home or self-care (01) | LOC: PSN 09:03 | PROVIDERS: PCP Internal Medicine; Referring Provider Nurse Practitioner Family; Visit Provider Nurse Practitioner Family | DX: R00.2 Palpitations (principal) | CPT/HCPCS: 93225; 93226 ==

== ENCOUNTER → 2022-04-15 | Outpatient (CLI) | payer MEDICAID, SELFPAY ==
--- NOTE | 2022-04-15 12:54 | CDU_ITS ---
Reason For Study: Pulsatile neck mass Rt. Velocities/BP Lt. Velocities/BP Prox CCA 76.9/14.4 cm/sec. Prox CCA 103.9/25.4 cm/sec. Mid CCA 80.5/17.2 cm/sec. Mid CCA 78.4/23.6 cm/sec. Dist CCA 84.6/24.3 cm/sec. Dist CCA 72.9/18.1 cm/sec. Prox ICA 49.3/10.2 cm/sec. Prox ICA 85.7/21.7 cm/sec. Mid ICA 53.6/21.6 cm/sec. Mid ICA 86.4/24.3 cm/sec. Dist ICA 55.7/23.0 cm/sec. Dist ICA 112.0/48.0 cm/sec. Rt. ICA/CCA = 0.7. Lt. ICA/CCA = 1.4. Prox ECA 79.1/20.6 cm/sec. Prox ECA 69.2/8.9 cm/sec. Rt. Vert. 42.9/15.9 cm/sec. Lt. Vert. 42.7/18.2 cm/sec. Right Extracranial There is intimal thickening but no significant atherosclerotic plaque noted in the right common carotid artery. There is intimal thickening but no significant atherosclerotic plaque noted in the right internal carotid artery. There is intimal thickening but no significant atherosclerotic plaque noted in the right external carotid artery. Antegrade flow is noted in the right vertebral artery. Left Extracranial There is intimal thickening but no significant atherosclerotic plaque noted in the left common carotid artery. There is intimal thickening but no significant atherosclerotic plaque noted in the left internal carotid artery. There is intimal thickening but no significant atherosclerotic plaque noted in the left external carotid artery. Antegrade flow is noted in the left vertebral artery. Procedure Carotid Duplex [id number]. This is a Carotid Duplex examination using B-mode, color flow and specral Doppler. The exam was diagnostic. Technically difficult study due to tortuous vessels and patient positioning. Exam performed in department. VL/Carotid Duplex Ultrasound Interpretation Summary Normal right extracranial internal carotid. Normal left extracranial internal carotid. Patent and antegrade vertebrals bilaterally. Vessel uniform caliber, with tortuosity Ordering Physician: Wade Figueroa Referring Physician: Amanda Cyr M.D. Performed By: Rao Baum RVT
== END | disposition home or self-care (01) ==
LOC: CVS 12:53
PROVIDERS: PCP Internal Medicine; Visit Provider Nurse Practitioner Family
DX: R22.1 Localized swelling, mass and lump, neck (principal); I65.22 Occlusion and stenosis of left carotid artery
CPT/HCPCS: 93880

== ENCOUNTER 2023-01-21 15:19 | Emergency (ER) | payer MEDICAID, SELFPAY ==
[2023-01-21 15:46] VITALS: BP 101/83; PULSE 79; RESP 18; TEMP 36.8; O2SAT 97
--- NOTE | 2023-01-21 18:14 | ED.VIS.BACK ---
HPI History of Present Illness Chief Complaint: Back Onset/Context/Timing Onset: Days (2) Context: Gradual Onset Timing: Continuous Quality: Sharp, Aching and Burning Location: Lumbar and Buttock Worsened by: improves with Movement Relieved by: Nothing Associated Symptoms Associated Symptoms: Tingling; Negative for Numbness, Radiation to Right Leg, Radiation to Left Leg, Fever, Abdominal Pain, Dysuria, Unable to Ambulate, Unable to Transfer, Urinary Retention, Urinary Incontinence, Constipation or Fecal Incontinence Narrative Narrative: Patient presents with back pain that has been getting worse over the past 2 days. Patient states it is gradually getting worse. Patient states it is mainly over her lower back. Patient describes it as sharp, aching, and burning. Patient states it is worse with any movement. Patient states nothing seems to help with it. Patient admits to some tingling into her legs. Patient denies any radiation of the pain. Patient denies any bowel or bladder changes. Patient denies any saddle anesthesia. [facility] Medical History Anxiety Constipation Constipation Hemorrhoids History of benign breast biopsy History of ectopic History of fracture of wrist Scoliosis Screen for colon cancer Surgical wound dehiscence Home Medications clonazepam 0.5 mg disintegrating tablet 0.5 mg PO BID Check with primary doctor 11/15/17 [History Last Taken 08/20/20] dicyclomine 20 mg tablet 20 mg PO Q6H PRN Pain 11/15/17 [History Last Taken Unknown] lactulose 10 gram/15 mL oral solution 10 g PO ONCE PRN Constipation 11/15/17 [History Last Taken Unknown] albuterol sulfate 90 mcg/actuation aerosol inhaler 2 puff inhalation Q4H PRN PRN Shortness Of Breath 08/22/20 [History Last Taken Unknown] fluticasone propionate 50 mcg/actuation nasal spray,suspension 1 spray NASAL DAILY Check with primary doctor 08/22/20 [History Last Taken Unknown] calcium carbonate 600 mg-vitamin D3 10 mcg (400 unit) tablet 1 tab PO DAILY 12/16/21 [History Last Taken Unknown] linaclotide 145 mcg capsule (Linzess) 145 mcg PO DAILY 12/16/21 [History Last Taken Unknown] nicotine (polacrilex) 2 mg gum 2 mg PO Q2H PRN 12/16/21 [History Last Taken Unknown] pregabalin 300 mg capsule 300 mg PO BID 12/16/21 [History Last Taken Unknown] quetiapine 25 mg tablet 25 mg PO PRN 12/16/21 [History Last Taken Unknown] cyclobenzaprine 10 mg tablet 10 mg PO QHS PRN PRN Muscle Spasm #10 TABLETS 01/21/23 [Rx Last Taken Unknown] Allergy/AdvReac Type Severity Reaction Status Date / Time buspirone [From BuSpar] Allergy Hives Verified 01/21/23 15:46 escitalopram [From Lexapro] AdvReac Rash Verified 01/21/23 15:46 gabapentin AdvReac Nausea/Vom/ Verified 01/21/23 15:46 Diarrhea Family History Brother Cancer NHL Surgical History H/O colonoscopy H/O Spinal surgery History of carpal tunnel repair history of finger surgery right foot tendon transfer Social History Smoking Status: Current every day smoker tobacco type: cigarettes alcohol intake: never caffeine: Yes Type: coffee and tea ROS ROS ED Constitutional Constitutional ED: Denies chills or fever(s) Eyes Eyes: Denies blurry vision or change in vision ENT ENT ED: Denies rhinorrhea or sore throat Cardiovascular Cardiovascular: Denies chest pain or palpitations Respiratory/Chest Respiratory/Chest: Denies cough or dyspnea Gastrointestinal Gastrointestinal: Reports nausea; Denies vomiting Genitourinary Genitourinary ED: Denies dysuria or hematuria Musculoskeletal Musculoskeletal: Reports back pain and neck pain Integumentary Denies abscess or rash Neurologic Neurologic: Denies headache(s) or weakness Allergic/Immunologic Allergic/Immunologic ED: Denies mouth swelling or urticaria EXAM Physical Exam Const Vital Signs: 01/21/23 15:46 Temperature 98.2 F Temperature Source Temporal Pulse Rate 79 Respiratory Rate 18 Blood Pressure 101/83 H Blood Pressure Mean 89 Pulse Ox 97 Oxygen Delivery Method Room Air Positive well nourished and well developed General Appearance ED: well developed HEENT Reports moist mucous membranes Neck supple and no JVD Resp normal respiratory effort and clear to auscultation bilaterally Cardio regular rate and regular rhythm GI soft to palpation, non-tender and non-distended Back/Spine Back/Spine Narrative: There is tenderness to palpation over the lumbar spine and paraspinal muscles. There is no bony crepitance or step-off. Range of motion was limited in all motions of the lumbar spine secondary to pain. Strength is 5/5 bilaterally in the lower extremities. There are no sensory deficits noted. Deep tendon reflexes are 2/4 bilateral in the lower extremities. Lumbar Spine / Lower Back: ROM limited and straight leg raise negative bilaterally Extremity normal to inspection General Extremety ED: Negative for edema or tenderness General Extremity: Negative for edema Neuro oriented x3 and no sensory deficits noted Sensorium / Orientation: alert Motor Exam: strength 5/5 throughout Deep Tendon Reflexes: Rt Patellar (L4): 2+, Lt Patellar (L4): 2+, Rt Ankle (S1): 2+ and Lt Ankle (S1): 2+ Deep Tendon Reflexes Back: Rt Patellar (L4): 2+, Lt Patellar (L4): 2+, Rt Ankle (S1): 2+ and Lt Ankle (S1): 2+ Psych mental status grossly normal MDM MDM MDM Narrative Medical decision making narrative: Differential diagnosis includes lumbar compression fracture, spondylolisthesis, hardware fracture, and muscular strain. X-rays of the lumbar spine will be obtained to assess for fracture and spondylolisthesis. Radiography X-Ray: LS SPine, Read by ED Physician, Read by Radiologist, No Fracture, DJD and Spondylolisthesis Diagnostic Testing: Clinical Impression(s) from Imaging Studies Lumbar Spine X-Ray 01/21/23 18:40 IMPRESSION: Limited due to hardware. No acute findings. L2-3 anterolisthesis. Electronically Signed: Jo Ann Johnson MD at 19:03 EDT Reading Location ID and State: [id number] / Tel , Service support , X-rays of the lumbar spine were obtained. There are 2 views. On my independent interpretation, there is no acute fracture. There is some mild spondylolisthesis of L2 on L3. There are degenerative changes noted. Radiologist also interpreted the x-rays and agrees. Treatment and Re-Evaluation Narrative: Patient was ordered an injection of Toradol here. Patient refused the Toradol. Patient was advised of her findings. Patient was advised that this is most likely a muscular strain. Patient was ordered and injection of Norflex here. Patient was given a prescription for Flexeril. Because of her history of polysubstance overdose, I do not want to prescribe the patient any opiates. Patient was instructed to use ice to the area. Patient was instructed to follow-up with her primary care physician for further evaluation. Patient understood and was agreeable with the plan. All questions were answered. Discharge Plan Triage Chief Complaint: Back ED Provider: Chava Florentino Dx/Rx/DC Orders Clinical Impression: Chronic low back pain, Acute lumbosacral myofascial strain Instructions: ED Back Pain (Acute or Chronic), ED Back Sprain/Strain Prescriptions: New cyclobenzaprine [cyclobenzaprine] 10 mg tablet 10 mg PO QHS PRN PRN (Reason: Muscle Spasm) Qty: 10 0RF No Action dicyclomine 20 mg tablet 20 mg PO Q6H PRN (Reason: Pain) lactulose 10 gram/15 mL solution 10 g PO ONCE PRN (Reason: Constipation) clonazepam 0.5 mg tablet,disintegrating 0.5 mg PO BID pregabalin 300 mg capsule 300 mg PO BID Patient Comments: TAKE 1 CAPSULE BY MOUTH TWICE DAILY quetiapine 25 mg tablet 25 mg PO PRN calcium carbonate-vitamin D3 600 mg-10 mcg (400 unit) tablet 1 tab PO DAILY nicotine (polacrilex) 2 mg gum 2 mg PO Q2H PRN Patient Comments: Chew 1 piece every 2 hours as needed. Linzess 145 mcg capsule 145 mcg PO DAILY Patient Comments: TAKE 1 CAPSULE BY MOUTH DAILY albuterol sulfate 1 PUFF inhaler 2 puff INHALATION Q4H PRN PRN (Reason: Shortness Of Breath) fluticasone propionate 1 SPRAY spray,suspension 1 spray NASAL DAILY Primary Care Provider: Amanda Cyr Referrals: Amanda Cyr MD [Primary Care Provider] - 3-5 Days Disposition Disposition: Home, Self Care
--- NOTE | 2023-01-21 18:40 | RAD_ITS ---
INDICATION: Injury/Pain EXAMINATION/TECHNIQUE: X-RAY - XR Spine Lumbar 2 or 3 Views COMPARISON: 05/15/2022. FINDINGS: Limited due to orthopedic hardware. VERTEBRAE: No acute fracture seen. Chronic L2 fracture, unchanged. Fusion hardware visualized from T12 through S1. 7 mm anterolisthesis at L2-3. DISCS: Disc spaces are maintained. INCLUDED ABDOMEN: Included bowel gas pattern is non-obstructive. RAD/Lumbar Spine 2 or 3 Views IMPRESSION: Limited due to hardware. No acute findings. L2-3 anterolisthesis. Electronically Signed: Jo Ann Johnson MD at 19:03 EDT Reading Location ID and State: [id number] / Tel , Service support ,
--- NOTE | 2023-01-21 20:19 | ED.RN ---
THIS RN CALLED TO PT'S ROOM, PT IS ANGRILY YELLING, DEMANDING DISCHARGE PAPERWORK, SHE STATES ALL THIS TIME FOR NOTHING. PT THEN ASKS THIS RN TO VERIFY THAT SHE WAS BEING DISCHARGED FROM A MEDICAL FACILITY IN ORDER TO OBTAIN TRANSPORTATION HOME. THIS RN SPOKE TO PT'S TAPE CUTTER PER PT'S CELL PHONE, GAVE REQUESTED INFORMATION. PT THEN GETS BACK IN BED, STATES SHE NEEDS TO FINISH PHONE CALL. THIS RN ADVISES THAT PT WAS DISCHARGED WOULD NEED TO WAIT FOR RIDE IN THE ED WAITING ROOM. PT STARTS YELLING I CAN'T WALK, I NEED HELP. THIS RN OBTAINED WHEELCHAIR, PT CONTINUES TO CONVERSE ON PHONE. AGAIN ASKED PT TO MOVE TO WAITING ROOM THERE WERE NUMEROUS SICK PTS WAITING FOR A ROOM. PT DEMANDS THIS RN'S FIRST AND LAST NAME, STATES YOU ARE GETTING REPORTED. AFTER SOME TIME PT GOT OUT OF BED AND IN TO WHEELCHAIR. PT STARTS YELLING FOR HELP FROM SIGNIFICANT OTHER RN WHEELS HER TO LOBBY I NEED HELP. SO WAITING FOR PT BY ED DOORS. PT REFUSES TO SIT IN LOBBY, THIS RN WHEELED PT TO ED DOORS, LEFT WITH SPOUSE TO WAIT FOR RIDE. PT YELLS OH DON'T YOU START BEING NICE NOW. PT LEFT IN WHEELCHAIR WITH SO AT SIDE. PT RUDE TO OTHER STAFF INCLUDING RADIOLOGY, TRIAGE NURSE, MEDIC, PRIMARY NURSE AND RUBBER BELT SPLICER.
== END 2023-01-21 20:37 | disposition home or self-care (01) ==
PROVIDERS: Emergency Provider Emergency Medicine; PCP Internal Medicine; Visit Provider Emergency Medicine
DX: S39.012A Strain of muscle, fascia and tendon of lower back, initial encounter (principal); F17.210 Nicotine dependence, cigarettes, uncomplicated; G89.29 Other chronic pain; X58.XXXA Exposure to other specified factors, initial encounter
CPT/HCPCS: 72100; 99284

== ENCOUNTER 2024-06-09 20:27 | Emergency (ER) | payer MEDICAID, SELFPAY ==
[2024-06-09 20:28] VITALS: BP 120/82; PULSE 91; RESP 18; TEMP 36.8; O2SAT 94; BMI 32.8
--- NOTE | 2024-06-09 20:46 | CT_ITS ---
INDICATION: pain hx of surgery EXAMINATION: CT SPINE - CT Spine Lumbar W/O Contrast Injection COMPARISON: Lumbar spine radiographs 05/15/2022 and 01/21/2023. A radiation dose optimization technique was used for this scan. RADIATION DOSAGE (If Supplied By Facility): CTDIvol/DLP = ( 30.19 ) / ( 1043.39 ) mGy/mGycm Findings: Serial CT axial images through the lumbar spine, with coronal and sagittal reformatted series. Bilateral thoracolumbar cyndy and pedicle screw constructs, extending to the sacrum with right screw tip lucencies again noted, suggesting loosening. Multilevel discontinuity of rods appears unchanged from 2022. Intervertebral disc spacers in place. Old T12 and L1 severe compression deformities with malalignment. Multilevel vertebral body height loss as well. Moderate-sized hiatal hernia better appreciated on thoracic spine CT. CT/Spine Lumbar without Contrast IMPRESSION: Stable post procedure and old posttraumatic change of the lumbosacral spine. Electronically Signed: Angel Chavis MD at 21:46 EST ,
--- NOTE | 2024-06-09 20:46 | CT_ITS ---
INDICATION: pain -- hx surgery EXAMINATION: CT SPINE - CT Spine Thoracic W/O Contrast Injection COMPARISON: Thoracic spine radiographs 05/15/2022. A radiation dose optimization technique was used for this scan. RADIATION DOSAGE (If Supplied By Facility): CTDIvol/DLP = ( 18.95 ) / ( 654.70 ) mGy/mGycm Findings: Serial CT axial images through the thoracic spine, with coronal and sagittal reformatted series. Bilateral thoracolumbar cyndy and pedicle screw constructs, incompletely imaged, although no obvious hardware complication. Again is noted T5 vertebral body compression deformity. Old T12 and L1 severe compression deformities with malalignment. Multiple bilateral subcentimeter pulmonary nodules measuring up to 5 mm in the right lower lobe although significant multilevel respiratory motion artifact. Moderate-sized hiatal hernia with heterogeneous material within the distal esophagus raising concern for aspiration risk. Mediastinal adenopathy measuring up to 18 mm in short axis. CT/Spine Thoracic without Contras IMPRESSION: Stable post procedure and old posttraumatic change of the thoracic spine. Moderate-sized hiatal hernia with heterogeneous material within the distal esophagus raising concern for aspiration risk. Pulmonary nodules. Mediastinal adenopathy. Recommend comparison with previous chest CT imaging to document long-term stability versus follow-up evaluation as per Fleischner guidelines as neoplastic process is not excluded. Electronically Signed: Angel Chavis MD at 21:39 EST ,
--- NOTE | 2024-06-09 20:48 | EDS_ITS ---
HPI History of Present Illness Chief Complaint: Back Informant: patient Narrative Narrative: Brought by EMS from home worsening back pain. Noted symptoms May 30 after shopping this was 12 days ago. She has had multiple back surgeries of her lumbar and thoracic last time [address] [facility]. She currently does not see pain management. She states there is issues with them in the past. Currently pain is managed by her PCP she is on Lyrica 300 mg twice a day. She states she gets prescriptions of Soma from her PCP for the last 6 months intermittently will get 21 tabs. She ran out 2 days ago. States she was told of a this is worsening. No radicular pain down the legs no pain that wraps around her chest. Wedge fracture in April on follow-up. She is concerned no loss of bowel or bladder control. States feels like pain mid thoracic goes up her back. Prior similar symptoms: Yes and With Prior Back Pain PFSH PFSH Medical History History of fracture of wrist History of ectopic Scoliosis Constipation Anxiety Constipation History of benign breast biopsy Hemorrhoids Screen for colon cancer Surgical wound dehiscence Home Medications ?Medication ?Instructions ?Recorded ?Last Taken ?Type clonazepam 0.5 mg disintegrating 0.5 mg PO BID Check with primary 11/15/17 08/20/20 History tablet doctor dicyclomine 20 mg tablet 20 mg PO Q6H PRN Pain 11/15/17 Unknown History lactulose 10 gram/15 mL oral 10 g PO ONCE PRN Constipation 11/15/17 Unknown History solution albuterol sulfate 90 mcg/actuation 2 puff inhalation Q4H PRN PRN 08/22/20 Unknown History aerosol inhaler Shortness Of Breath fluticasone propionate 50 1 spray NASAL DAILY Check with 08/22/20 Unknown History mcg/actuation nasal primary doctor spray,suspension calcium 600 mg (as 1 tab PO DAILY 12/16/21 Unknown History carbonate)-vitamin D3 10 mcg (400 unit) tablet linaclotide 145 mcg capsule 145 mcg PO DAILY 12/16/21 Unknown History (Linzess) nicotine (polacrilex) 2 mg gum 2 mg PO Q2H PRN 12/16/21 Unknown History pregabalin 300 mg capsule 300 mg PO BID 12/16/21 Unknown History quetiapine 25 mg tablet 25 mg PO PRN 12/16/21 Unknown History cyclobenzaprine 10 mg tablet 10 mg PO QHS PRN PRN Muscle Spasm 01/21/23 Unknown Rx #10 TABLETS oxycodone-acetaminophen 5 mg-325 1 tab PO Q6H PRN PRN Pain 3 days 06/09/24 Unknown Rx mg tablet #12 TABLETS Allergy/AdvReac Type Severity Reaction Status Date / Time buspirone (From BuSpar) Allergy Hives Verified 06/09/24 20:35 escitalopram (From Lexapro) AdvReac Rash Verified 06/09/24 20:35 gabapentin AdvReac Nausea/Vom/ Verified 06/09/24 20:35 Diarrhea Family History Brother Cancer NHL Surgical History right foot tendon transfer history of finger surgery History of carpal tunnel repair H/O Spinal surgery H/O colonoscopy Social History Smoking Status: Current every day smoker tobacco type: cigarettes alcohol intake: never caffeine: Yes Type: coffee and tea ROS ROS ED Constitutional Constitutional ED: Denies chills, fever(s) or sweats ENT ENT ED: Denies sore throat Cardiovascular Cardiovascular: Denies chest pain, leg edema, palpitations or racing heartbeat Respiratory/Chest Respiratory/Chest: Denies cough, dyspnea or dyspnea on exertion Gastrointestinal Gastrointestinal: Denies abdominal pain, diarrhea, nausea or vomiting Genitourinary Genitourinary ED: Denies dysuria, hematuria or urinary frequency Musculoskeletal Musculoskeletal: Reports back pain; Denies extremity pain or neck pain Integumentary Denies rash or wounds Neurologic Neurologic: Denies headache(s), paresthesias or weakness EXAM Physical Exam Const Vital Signs: 06/09/24 20:28 06/09/24 22:27 Temperature 98.2 F Temperature Source Oral Pulse Rate 91 89 Respiratory Rate 18 14 Blood Pressure 120/82 H Blood Pressure Mean 94 Pulse Ox 94 95 Oxygen Delivery Method Room Air Room Air Positive well nourished and well developed General Appearance ED: well developed and NAD HEENT Reports moist mucous membranes normocephalic and atraumatic Eyes General Eye ED: Yes normal appearance of both eyes Neck full ROM Chest Wall Chest: Negative for tenderness Resp normal respiratory effort and normal air movement Effort and Inspection: symmetric chest movement; Negative for respiratory distress Cardio regular rate, regular rhythm and no murmurs Peripheral Pulses: pulses 2+ throughout GI normal to inspection, nondistended, normoactive bowel sounds and non-tender Palpation: Negative for guarding or rebound tenderness present Back/Spine Back/Spine Narrative: Midline back scar thoracic, lumbar palpation mid thoracic. There is no crepitus no rash. Extremity normal to inspection General Extremety ED: Negative for edema or tenderness General Extremity: Negative for edema Neuro oriented x3 and no sensory deficits noted Sensorium / Orientation: awake and alert Skin no rashes or lesions noted and no wounds MDM MDM MDM Narrative Medical decision making narrative: Interventions / MDM: Differential diagnosis: Chronic back pain, history of vertebral compression fracture Diagnosis considered but do not suspect: No cauda equina symptoms. No radicular symptoms. My EKG interpretation: N/A Imaging independently reviewed and interpreted by myself: CT thoracic spine: Stable T5, T12 and L1 compression fracture. CT lumbar: Postsurgical changes per radiology. External documents reviewed: OARRS report May 26, 2024 Soma 250 mg 21 tabs to be taken 3 times a day. Test considered but not ordered:N/A ED course: Worsening back pain history wedge fracture with both thoracic and lumbar surgery. No radicular symptoms. With worsening pain will pain scans of her thoracic and lumbar spine. Oxycodone 10 mg ordered for symptom control. Symptom control reevaluation. CT scan stable Compression fractures T5, T12, L1. This discussed with the patient. She will continue her Lyrica, Soma. Short prescription for oxycodone for pain control she does not currently see pain management. OARRS report negative. She like follow-up with spine therefore given Dr. Caicedo for follow-up. She also follow with her PCP. All questions were answered. Re-evaluation: stable Disposition discussed with patient/family/significant other: Patient Case discussed with consulting clinician: N/A This note was generated with Somewhere dictation software. It may contain incorrect words, spelling, and punctuation that were not noted in checking the note before signing. Radiography Diagnostic Testing: Clinical Impression(s) from Imaging Studies Lumbar Spine CT 06/09/24 20:46 IMPRESSION: Stable post procedure and old posttraumatic change of the lumbosacral spine. Electronically Signed: Angel Chavis MD at 21:46 EST , Thoracic Spine CT 06/09/24 20:46 IMPRESSION: Stable post procedure and old posttraumatic change of the thoracic spine. Moderate-sized hiatal hernia with heterogeneous material within the distal esophagus raising concern for aspiration risk. Pulmonary nodules. Mediastinal adenopathy. Recommend comparison with previous chest CT imaging to document long-term stability versus follow-up evaluation as per Fleischner guidelines as neoplastic process is not excluded. Electronically Signed: Angel Chavis MD at 21:39 EST , Discharge Plan Triage Chief Complaint: Back ED Provider: Aldair Kirby Dx/Rx/DC Orders Clinical Impression: Chronic back pain, Compression fracture Instructions: ED Back Pain (Acute or Chronic) Prescriptions: New oxycodone-acetaminophen 5-325 mg tablet 1 tab PO Q6H PRN PRN (Reason: Pain) 3 Days Qty: 12 0RF No Action dicyclomine 20 mg tablet 20 mg PO Q6H PRN (Reason: Pain) lactulose 10 gram/15 mL solution 10 g PO ONCE PRN (Reason: Constipation) clonazepam 0.5 mg tablet,disintegrating 0.5 mg PO BID pregabalin 300 mg capsule 300 mg PO BID Patient Comments: TAKE 1 CAPSULE BY MOUTH TWICE DAILY quetiapine 25 mg tablet 25 mg PO PRN calcium carbonate-vitamin D3 600 mg-10 mcg (400 unit) tablet 1 tab PO DAILY nicotine (polacrilex) 2 mg gum 2 mg PO Q2H PRN Patient Comments: Chew 1 piece every 2 hours as needed. Linzess 145 mcg capsule 145 mcg PO DAILY Patient Comments: TAKE 1 CAPSULE BY MOUTH DAILY albuterol sulfate 1 PUFF inhaler 2 puff INHALATION Q4H PRN PRN (Reason: Shortness Of Breath) fluticasone propionate 1 SPRAY spray,suspension 1 spray NASAL DAILY cyclobenzaprine [cyclobenzaprine] 10 mg tablet 10 mg PO QHS PRN PRN (Reason: Muscle Spasm) Qty: 10 0RF Primary Care Provider: Amanda Cyr Referrals: Miles Craig MD [Med Staff - Active Staff] - 1-2 Weeks Amanda Cyr MD [Primary Care Provider] - 3-5 Days Activity Restrictions/Additional Instructions: Old stable compression fracture T5, T12, L1 and CT. Follow-up your doctor and Dr. Caicedo. Continue your Lyrica, Soma and use oxycodone as needed. Refills by your doctor. Print Language: Citizen Of [place] Disposition Disposition: Home, Self Care Discharge Date/Time: 06/09/24 23:04
[2024-06-09] MEDS: oxyCODONE 5 MG Tablet 10 MG PO (21:02)
[2024-06-09 22:27] VITALS: PULSE 89; RESP 14; O2SAT 95
== END 2024-06-09 23:04 | disposition home or self-care (01) ==
PROVIDERS: Emergency Provider Emergency Medicine; PCP Internal Medicine; Visit Provider Emergency Medicine
DX: M48.54XA Collapsed vertebra, not elsewhere classified, thoracic region, initial encounter for fracture (principal); M48.55XA Collapsed vertebra, not elsewhere classified, thoracolumbar region, initial encounter for fracture; X58.XXXA Exposure to other specified factors, initial encounter; G89.29 Other chronic pain; K59.00 Constipation, unspecified; F17.210 Nicotine dependence, cigarettes, uncomplicated; Z98.890 Other specified postprocedural states
CPT/HCPCS: 72128; 72131; 99284